=== PATIENT | male | born 1970 | race American Indian/Alaskan Native ===

== ENCOUNTER 2016-08-11 09:02 | Emergency (ER) | payer SELFPAY ==
[2016-08-11 09:20] VITALS: BP 141/97
[2016-08-11 09:59] LABS: Eosinophils % (Auto) 0.5 % (0.0-4.3); Hematocrit 41.8 % (35.5-45.6); Hemoglobin 14.1 gm/dl (11.8-15.2); Mean Corpuscular HGB Conc 34 % (32-34); Mean Corpuscular Hemoglobin 31 pg (28-32); Mean Corpuscular Volume 92 fl (84-94); Platelet Count 303 K/mm3 (140-440); Red Blood Count 4.52 M/mm3 (3.65-5.03); Red Cell Distribution Width 14.5 % (13.2-15.2); White Blood Count 5.1 K/mm3 (4.5-11.0)
[2016-08-11 10:02] LABS: Alanine Aminotransferase 19 units/L (7-56); Albumin 4.3 g/dL (3.9-5); Albumin/Globulin Ratio 1.2 %; Alkaline Phosphatase 83 units/L (35-129); Anion Gap 26 mmol/L; BUN/Creatinine Ratio 8.57; Blood Urea Nitrogen 6 mg/dL (9-20); Calcium 9.2 mg/dL (8.4-10.2); Carbon Dioxide 20 mmol/L (22-30); Chloride 89.1 mmol/L (98-107); Glucose 316 mg/dL (75-100); Lipase 34 units/L (13-60); Potassium 4.4 mmol/L (3.6-5.0); Sodium 131 mmol/L (137-145); Total Protein 7.9 g/dL (6.3-8.2)
[2016-08-11 10:33] LABS: Bilirubin,Urine NEG (Negative); Blood,Urine NEG (Negative); Ketones,Urine 20 mg/dL (Negative); Leukocyte Esterase,Urine NEG (Negative); Mucus,Urine FEW /HPF; Nitrite,Urine NEG (Negative); Protein,Urine <15 mg/dL mg/dL (Negative); Urobilinogen,Urine < 2.0 mg/dL (<2.0)
== END 2016-08-11 11:25 | disposition left against medical advice (07) ==
LOC: ED 09:02
DX: E11.9 Type 2 diabetes mellitus without complications (principal); Z53.21 Procedure and treatment not carried out due to patient leaving prior to being seen by health care provider
CPT/HCPCS: 36415; 80053; 81001; 82962; 83690; 85025

== ENCOUNTER 2016-11-11 20:48 | Emergency (ER) | payer SELFPAY ==
[2016-11-11 21:32] VITALS: BP 124/80
== END 2016-11-11 21:30 | disposition left against medical advice (07) ==
LOC: ED 20:48
DX: R10.9 Unspecified abdominal pain (principal); Z53.21 Procedure and treatment not carried out due to patient leaving prior to being seen by health care provider

== ENCOUNTER 2016-11-12 04:20 | Emergency (ER) | payer SELFPAY ==
[2016-11-12 04:47] VITALS: BP 121/76
== END 2016-11-12 05:00 | disposition left against medical advice (07) ==
LOC: ED 04:20
DX: Z53.21 Procedure and treatment not carried out due to patient leaving prior to being seen by health care provider (principal)
CPT/HCPCS: 82962

== ENCOUNTER 2019-12-14 06:03 | Emergency (ER) | payer OTHER ==
[2019-12-14 06:58] LABS: Alanine Aminotransferase 114 units/L (7-56); Albumin 4.4 g/dL (3.9-5); Blood Urea Nitrogen 5 mg/dL (9-20); Calcium 9.6 mg/dL (8.4-10.2); Hemolysis Index 19
[2019-12-14 06:59] LABS: BUN/Creatinine Ratio 7
[2019-12-14 07:01] LABS: Basophils % (Auto) 0.4 % (0.0-1.8); Eosinophils % (Auto) 0.2 % (0.0-4.3); Hematocrit 44.3 % (35.5-45.6); Hemoglobin 15.5 gm/dl (11.8-15.2); Lymphocytes % (Auto) 43.6 % (13.4-35.0); Mean Corpuscular HGB Conc 35 % (32-34); Mean Corpuscular Volume 103 fl (84-94); Monocytes # (Auto) 0.6 K/mm3 (0.0-0.8); Monocytes % (Auto) 13.7 % (0.0-7.3); Platelet Count 193 K/mm3 (140-440)
[2019-12-14] MEDS ORDERED: ONDANSETRON 4 MG/2 ML INJ IV ONE (07:56)
[2019-12-14] MEDS ORDERED: SODIUM CHLORIDE 0.9% 1000 ML 1,000 ML IV ONE (07:56)
[2019-12-14] MEDS ORDERED: MORPHINE 4 MG/1 ML INJ IV ONE (07:56)
[2019-12-14] MEDS ORDERED: FAMOTIDINE 20 MG/2 ML INJ IV ONE (07:56)
[2019-12-14] MEDS ORDERED: KETOROLAC 30 MG/1 ML INJ IV ONE (07:56)
[2019-12-14] MEDS ORDERED: diphenhydrAMINE 50 MG/ML VIAL IV ONE (08:38)
[2019-12-14] MEDS ORDERED: diphenhydrAMINE 50 MG/ML VIAL IV PRN (08:42)
[2019-12-14 08:47] VITALS: BP 178/120
--- NOTE | 2019-12-14 09:58 | Cat Scan Report ---
CT abdomen pelvis wo con INDICATION: Epigastric pain. COMPARISON: None TECHNIQUE: Abdominal and pelvic CT exam performed. All CT scans at this location are performed using CT dose reduction for ALARA by means of automated exposure control. FINDINGS: CT ABDOMEN and PELVIS: Lung Bases: No significant abnormality. Liver: Decreased attenuation consistent with hepatic steatosis which is more pronounced in the left h epatic lobe. Biliary: Gallbladder is surgically absent. Spleen: No significant abnormality. Pancreas: Parenchymal calcifications are present. Adrenals: No significant abnormality. Kidneys: No significant abnormality. Lymphatics: No lymphadenopathy. Vasculature: No significant abnormality. Bowel/Peritoneum: Diverticulosis without colonic wall thickening or pericolonic stranding. Normal isabel endix. Pelvis: No significant abnormality. Osseous Structures: No aggressive osseous lesion. Postoperative changes to the right iliac and ischiu m. Additional Findings: None IMPRESSION: 1. No acute abnormality. 2. There are scattered pancreatic parenchymal calcifications consistent with sequela of chronic pancr eatitis. Moderate hepatic steatosis is also present. Both of these entities can be sequela of alcohol . Signer Name: Sandeep Moore MD Signed: 12/14/2019 9:54 AM Workstation Name: [id number]
[2019-12-14] MEDS ORDERED: HYDROcodone/ACETAMINOPHEN 5-325 MG TAB PO ONE (10:17)
--- NOTE | 2019-12-14 10:19 | Emergency Department Report ---
ED Abdominal Pain HPI - General Chief Complaint: Abdominal Pain Stated Complaint: ABDOMINAL PAIN Time Seen by Provider: 12/14/19 07:55 Source: patient Mode of arrival: Ambulatory Limitations: No Limitations - History of Present Illness Initial Comments: Patient is a 49-year-old F Israeli male with a past medical history of alcohol abuse and pancreatitis who is presenting with nausea vomiting epigastric pain for the past 3 to 4 days. Patient states has been unable to keep anything down. Is burning epigastric discomfort with some radiation to the mid chest. Patient denies cough cold congestion fevers or chills or diarrhea. Patient states he is trying to drink less but has not stopped drinking because he does not want to go to alcohol withdrawal. Severity scale (0 -10): 1 - Related Data Previous Rx's Medication Instructions Recorded Last Taken Type chlordiazePOXIDE [Librium] 25 mg PO DAILY #20 capsule 04/18/13 Unknown Rx Lipase/Protease/Amylase [Pancreaze 1 cap PO QDAY #30 capsule 09/04/[address] 4,200 Unit] Ondansetron [Zofran Odt] 4 mg PO Q6HR #20 tab.rapdis 09/04/13 Unknown Rx Oxycodone HCl/Acetaminophen 1 each PO Q6HR PRN #20 tablet 09/04/13 Unknown Rx [Percocet 10/325 mg] lisinopriL [Zestril TAB] 10 mg PO QDAY #30 tablet 09/04/13 Unknown Rx metFORMIN [Glucophage] 500 mg PO BID #60 tablet 09/04/13 Unknown Rx oxyCODONE /ACETAMINOPHEN [Percocet 1 tab PO Q6HR PRN #10 tablet 11/14/13 Unknown Rx 5/325] HYDROcodone/APAP 5-325 [[place] 1 each PO Q6HR PRN #10 tablet 12/14/19 Unknown Rx 5/325] Ondansetron [Zofran Odt] 4 mg PO Q8HR #10 tab.rapdis 12/14/19 Unknown Rx Sucralfate [Carafate] 1 gm PO ACHS #30 tablet 12/14/19 Unknown Rx Allergies Allergy/AdvReac Type Severity Reaction Status Date / Time No Known Allergies Allergy Verified 08/11/16 09:13 ED Review of Systems ROS: Stated complaint: ABDOMINAL PAIN Other details as noted in HPI Comment: All other systems reviewed and negative ED Past Medical Hx - Past Medical History Previous Medical History?: Yes Hx Hypertension: Yes Hx Diabetes: Yes Additional medical history: pancreatitis. High Cholesterol - Surgical History Past Surgical History?: Yes Hx Cholecystectomy: Yes - Social History Smoking Status: Never Smoker Substance Use Type: None - Medications Home Medications: Home Medications Medication Instructions Recorded Confirmed Last Taken Type chlordiazePOXIDE [Librium] 25 mg PO DAILY #20 capsule 14 09/03/13 Unknown Rx Lipase/Protease/Amylase [Pancreaze 1 cap PO QDAY #30 capsule 09/04/13 Unknown Rx 4,200 Unit] Ondansetron [Zofran Odt] 4 mg PO Q6HR #20 tab.rapdis 09/04/13 Unknown Rx Oxycodone HCl/Acetaminophen 1 each PO Q6HR PRN #20 tablet 09/04/13 Unknown Rx [Percocet 10/325 mg] lisinopriL [Zestril TAB] 10 mg PO QDAY #30 tablet 09/04/13 Unknown Rx metFORMIN [Glucophage] 500 mg PO BID #60 tablet 09/04/13 Unknown Rx oxyCODONE /ACETAMINOPHEN [Percocet 1 tab PO Q6HR PRN #10 tablet 11/14/13 Unknown Rx 5/325] HYDROcodone/APAP 5-325 [[place] 1 each PO Q6HR PRN #10 tablet 12/14/19 Unknown Rx 5/325] Ondansetron [Zofran Odt] 4 mg PO Q8HR #10 tab.rapdis 12/14/19 Unknown Rx Sucralfate [Carafate] 1 gm PO ACHS #30 tablet 12/14/19 Unknown Rx ED Physical Exam - General Limitations: No Limitations General appearance: alert, in no apparent distress - Head Head exam: Present: atraumatic, normocephalic - Eye Eye exam: Present: normal appearance - ENT ENT exam: Present: normal orophraynx, mucous membranes moist - Neck Neck exam: Present: normal inspection - Respiratory Respiratory exam: Present: normal lung sounds bilaterally. Absent: respiratory distress, wheezes, rales, rhonchi - Cardiovascular Cardiovascular Exam: Present: regular rate, normal rhythm. Absent: systolic murmur, diastolic murmur, rubs, gallop - GI/Abdominal GI/Abdominal exam: Present: soft, tenderness (epigastric), normal bowel sounds. Absent: distended, guarding, rebound - Rectal Rectal exam: Present: deferred - Extremities Exam Extremities exam: Present: normal inspection - Back Exam Back exam: Present: normal inspection - Neurological Exam Neurological exam: Present: alert, oriented X3 - Psychiatric Psychiatric exam: Present: normal affect, normal mood - Skin Skin exam: Present: warm, dry, intact, normal color. Absent: rash ED Course Vital Signs 12/14/19 12/14/19 12/14/19 06:10 07:59 08:00 Temperature 98.8 F Pulse Rate 86 99 H Respiratory 18 12 Rate Blood Pressure 170/107 178/120 Blood Pressure [Right] O2 Sat by Pulse 97 100 99 Oximetry 12/14/19 12/14/19 12/14/19 08:15 08:31 08:38 Temperature Pulse Rate 90 87 Respiratory 15 20 18 Rate Blood Pressure 178/120 178/120 Blood Pressure [Right] O2 Sat by Pulse 97 98 Oximetry 12/14/19 08:44 Temperature 98.2 F Pulse Rate 86 Respiratory 18 Rate Blood Pressure Blood Pressure 172/115 [Right] O2 Sat by Pulse 100 Oximetry ED Medical Decision Making - Lab Data Result diagrams: 12/14/19 06:16 12/14/19 06:16 Lab Results 12/14/19 12/14/19 Range/Units 06:16 06:16 WBC 4.5 (4.5-11.0) K/mm3 RBC 4.30 (3.65-5.03) M/mm3 Hgb 15.5 H (11.8-15.2) gm/dl Hct 44.3 (35.5-45.6) % MCV 103 H (84-94) fl MCH 36 H (28-32) pg MCHC 35 H (32-34) % RDW 13.0 L (13.2-15.2) % Plt Count 193 (140-440) K/mm3 Lymph % (Auto) 43.6 H (13.4-35.0) % Catron % (Auto) 13.7 H (0.0-7.3) % Eos % (Auto) 0.2 (0.0-4.3) % Baso % (Auto) 0.4 (0.0-1.8) % Lymph # (Auto) 2.0 (1.2-5.4) K/mm3 Catron # (Auto) 0.6 (0.0-0.8) K/mm3 Eos # (Auto) 0.0 (0.0-0.4) K/mm3 Baso # (Auto) 0.0 (0.0-0.1) K/mm3 Seg Neutrophils % 42.1 (40.0-70.0) % Seg Neutrophils # 1.9 (1.8-7.7) K/mm3 Sodium 133 L (137-145) mmol/L Potassium 4.7 (3.6-5.0) mmol/L Chloride 90.8 L (98-107) mmol/L Carbon Dioxide 23 (22-30) mmol/L Anion Gap 24 mmol/L BUN 5 L (9-20) mg/dL Creatinine 0.7 L (0.8-1.3) mg/dL Estimated GFR > 60 ml/min BUN/Creatinine Ratio 7 % Glucose 169 H (75-100) mg/dL Calcium 9.6 (8.4-10.2) mg/dL Total Bilirubin 0.60 (0.1-1.2) mg/dL AST 72 H (5-40) units/L ALT 114 H (7-56) units/L Alkaline Phosphatase 146 H (35-129) units/L Total Protein 7.5 (6.3-8.2) g/dL Albumin 4.4 (3.9-5) g/dL Albumin/Globulin Ratio 1.4 % Lipase 40 (13-60) units/L - Radiology Data Reporting MD: Sandeep Moore Dictation Time: December 14, 2019 08:54 Clinical Cytogenetics Director: Not available Manhole Builder Date: CT abdomen pelvis wo con INDICATION: Epigastric pain. COMPARISON: None TECHNIQUE: Abdominal and pelvic CT exam performed. All CT scans at this location are performed using CT dose reduction for ALARA by means of automated exposure control. FINDINGS: CT ABDOMEN and PELVIS: Lung Bases: No significant abnormality. Liver: Decreased attenuation consistent with hepatic steatosis which is more pronounced in the left hepatic lobe. Biliary: Gallbladder is surgically absent. Spleen: No significant abnormality. Pancreas: Parenchymal calcifications are present. Adrenals: No significant abnormality. Kidneys: No significant abnormality. Lymphatics: No lymphadenopathy. Vasculature: No significant abnormality. Bowel/Peritoneum: Diverticulosis without colonic wall thickening or pericolonic stranding. Normal appendix. Pelvis: No significant abnormality. Osseous Stru ctures: No aggressive osseous lesion. Postoperative changes to the right iliac and ischium. Additional Findings: None IMPRESSION: 1. No acute abnormality. 2. There are scattered pancreatic pare nchymal calcifications consistent with sequela of chronic pancreatitis. Moderate hepatic steatosis is also present. Both of these entities can be sequela of alcohol. Signer Name: Sandeep Moore MD Signed: 12/14/2019 8:54 AM Workstation Name: [id number] - Medical Decision Making Patient's pain is decreasing. Nausea is improved. CT does not show acute pancreatitis. Laboratory studies are consistent with some mild dehydration. Patient was hydrated but will be stable for discharge. Patient started on Carafate for probable alcoholic gastritis. Critical care attestation.: If time is entered above; I have spent that time in minutes in the direct care of this critically ill patient, excluding procedure time. ED Disposition Clinical Impression: Mild dehydration Alcoholic gastritis Qualifiers: Chronicity: acute Gastritis bleeding: without bleeding Qualified Code(s): K29.20 - Alcoholic gastritis without bleeding Chronic pancreatitis Qualifiers: Pancreatitis type: alcohol induced Qualified Code(s): K86.0 - Alcohol-induced chronic pancreatitis Disposition: DC-01 TO HOME OR SELFCARE Is pt being admited?: No Does the pt Need Aspirin: No Condition: Stable Instructions: Gastritis (ED) Referrals: PRIMARY CAREMD [Primary Care Provider] - 3-5 Days Time of Disposition: 10:22
== END 2019-12-14 12:43 | disposition home or self-care (01) ==
LOC: ED 06:03
DX: K29.20 Alcoholic gastritis without bleeding (principal); E86.0 Dehydration; K86.0 Alcohol-induced chronic pancreatitis; I10 Essential (primary) hypertension; E11.9 Type 2 diabetes mellitus without complications; E78.00 Pure hypercholesterolemia, unspecified; Z90.49 Acquired absence of other specified parts of digestive tract; Z79.899 Other long term (current) drug therapy
CPT/HCPCS: 36415; 74176; 80053; 83690; 85025; 96361; 96374; 96375; 99284; J1200; J1885; J2270; J2405; J7030

== ENCOUNTER 2021-07-10 11:18 | Inpatient (IN) | payer OTHER ==
[2021-07-10 12:40] LABS: Basophils % (Auto) 0.3 % (0.0-1.8); Hematocrit 44.5 % (35.5-45.6); Hemoglobin 15.2 gm/dl (11.8-15.2); Lymphocytes # (Auto) 0.8 K/mm3 (1.2-5.4); Lymphocytes % (Auto) 7.4 % (13.4-35.0); Mean Corpuscular HGB Conc 34 % (32-34); Mean Corpuscular Volume 99 fl (84-94); Monocytes # (Auto) 1.1 K/mm3 (0.0-0.8); Monocytes % (Auto) 10.1 % (0.0-7.3); Platelet Count 289 K/mm3 (140-440); Red Blood Count 4.52 M/mm3 (3.65-5.03)
[2021-07-10 13:00] LABS: Alanine Aminotransferase 17 units/L (7-56); Albumin 5.3 g/dL (3.9-5); BUN/Creatinine Ratio 9; Blood Urea Nitrogen 8 mg/dL (9-20); Calcium 10.5 mg/dL (8.4-10.2); Hemolysis Index 6
[2021-07-10 15:08] LABS: Bilirubin,Urine NEG (Negative); Blood,Urine NEG (Negative); Color,Urine Straw (Yellow); RBC,Urine < 1.0 /HPF (0.0-6.0); Urobilinogen,Urine < 2.0 mg/dL (<2.0)
[2021-07-10 15:13] LABS: WBC,Urine < 1.0 /HPF (0.0-6.0)
[2021-07-10] MEDS ORDERED: MORPHINE 4 MG/1 ML INJ IV ONE (18:21)
[2021-07-10] MEDS ORDERED: SODIUM CHLORIDE 0.9% 1000 ML 1,000 ML IV ONE ×2 (18:21)
[2021-07-10] MEDS ORDERED: ONDANSETRON 4 MG/2 ML INJ IV ONE (18:21)
[2021-07-10] MEDS ORDERED: INSULIN REGULAR, HUMAN 100 UNITS/1 ML IV ONE (18:22)
[2021-07-10] MEDS ORDERED: FAMOTIDINE 20 MG/2 ML INJ IV ONE (18:24)
--- NOTE | 2021-07-10 18:27 | Emergency Department Report ---
Blank Doc - Documentation Documentation: Chart brought to my attention by charge nurse Jayda regarding critical values of hyperglycemia. Patient does have an anion gap with elevated ketones. As per medical record history of pancreatitis and alcohol abuse. Differential includes acute alcohol intoxication, DKA, or dehydration as cause of anion gap acidosis with ketosis. Patient does have mild elevation in lipase. Additional labs ordered include alcohol level and venous pH IV fluids, insulin, Pepcid, morphine, Zofran, and CT abdomen pelvis have been ordered Triage nurse will initiate IV access and meds while awaiting bed availability in the department
[2021-07-10] MEDS ORDERED: diphenhydrAMINE 50 MG/ML VIAL IV ONE (19:17)
[2021-07-10] MEDS ORDERED: diphenhydrAMINE 50 MG/ML VIAL ONE (19:18)
[2021-07-10] MEDS ORDERED: PANTOPRAZOLE 40 MG INJ IV ONE (21:30)
[2021-07-10] MEDS ORDERED: SODIUM CHLORIDE 0.9% 1000 ML 2,000 ML IV ONE (21:30)
--- NOTE | 2021-07-10 21:30 | Emergency Department Report ---
ED General Adult HPI - General Chief complaint: Abdominal Pain Stated complaint: PANCREAS PUI?: No Time Seen by Provider: 07/10/21 21:15 Source: patient, RN notes reviewed, old records reviewed Mode of arrival: Ambulatory Limitations: No Limitations - History of Present Illness Initial comments: The patient was evaluated in the emergency department for symptoms described in the history of present illness. He/she was evaluated in the context of the global COVID-19 pandemic, which necessitated consideration that the patient m ight be at risk for infection with the virus that causes COVID-19. Institutional protocols and algorithms that pertain to the evaluation of patients at risk for COVID-19 are in a state of rapid change based on information released by regulatory bodies including the CDC and federal and state organizations. These policies and algorithms were followed during the patient's care in the emergency department. Please note that these policies, procedures and recommendations changed on a rapid basis. The patient is a 51-year-old gentleman with a history of alcohol abuse, diabetes, hypertension, and chronic pancreatitis, who presents to the ER today with a complaint of diffuse abdominal pain, cramping, nausea and vomiting. He consumed alcohol yesterday. He is not homicidal or suicidal. He endorses a "funny" feeling in his genitals, and possible dysuria. He denies homicidality, suicidality, hallucinations, access to guns or firearms, and also denies headache, neck pain, chest pain and shortness of breath. Last alcohol consumption was yesterday. He reports his symptoms typically improved with Dilaudid and Benadryl. -: days(s) Location: abdomen Severity scale (0 -10): 8 Quality: aching Consistency: constant Improves with: medication Worsens with: eating - Related Data Previous Rx's Medication Instructions Recorded Last Taken Type chlordiazePOXIDE [Librium] 25 mg PO DAILY #20 capsule 04/18/13 Unknown Rx Lipase/Protease/Amylase [Pancreaze 1 cap PO QDAY #30 capsule 09/04/13 Unknown Rx 4,200 Unit] Ondansetron [Zofran Odt] 4 mg PO Q6HR #20 tab.rapdis 09/04/13 Unknown Rx Oxycodone HCl/Acetaminophen 1 each PO Q6HR PRN #20 tablet 09/04/13 Unknown Rx [Percocet 10/325 mg] lisinopriL [Zestril TAB] 10 mg PO QDAY #30 tablet 09/04/13 Unknown Rx metFORMIN [Glucophage] 500 mg PO BID #60 tablet 09/04/13 Unknown Rx oxyCODONE /ACETAMINOPHEN [Percocet 1 tab PO Q6HR PRN #10 tablet 11/14/13 Unknown Rx 5/325] HYDROcodone/APAP 5-325 [[place] 1 each PO Q6HR PRN #10 tablet 12/14/19 Unknown Rx 5/325] Ondansetron [Zofran Odt] 4 mg PO Q8HR #10 tab.rapdis 12/14/19 Unknown Rx Sucralfate [Carafate] 1 gm PO ACHS #30 tablet 12/14/19 Unknown Rx Allergies Allergy/AdvReac Type Severity Reaction Status Date / Time No Known Allergies Allergy Verified 08/11/16 09:13 ED Review of Systems ROS: Stated complaint: PANCREAS Other details as noted in HPI Constitutional: denies: fever Eyes: denies: eye discharge ENT: denies: epistaxis Respiratory: denies: cough Cardiovascular: denies: chest pain Gastrointestinal: abdominal pain, nausea, vomiting Genitourinary: as per HPI Musculoskeletal: back pain Neurological: denies: weakness Psychiatric: denies: visual hallucinations, suicidal thoughts ED Past Medical Hx - Past Medical History Previous Medical History?: Yes Hx Hypertension: Yes Hx Diabetes: Yes Additional medical history: pancreatitis. High Cholesterol - Surgical History Past Surgical History?: Yes Hx Cholecystectomy: Yes - Social History Smoking Status: Never Smoker Substance Use Type: None - Medications Home Medications: Home Medications Medication Instructions Recorded Confirmed Last Taken Type chlordiazePOXIDE [Librium] 25 mg PO DAILY #20 capsule 04/18/13 09/03/13 Unknown Rx Lipase/Protease/Amylase [Pancreaze 1 cap PO QDAY #30 capsule 09/04/[address] 4,200 Unit] Ondansetron [Zofran Odt] 4 mg PO Q6HR #20 tab.rapdis 09/04/13 Unknown Rx Oxycodone HCl/Acetaminophen 1 each PO Q6HR PRN #20 tablet 09/04/13 Unknown Rx [Percocet 10/325 mg] lisinopriL [Zestril TAB] 10 mg PO QDAY #30 tablet 09/04/13 Unknown Rx metFORMIN [Glucophage] 500 mg PO BID #60 tablet 09/04/13 Unknown Rx oxyCODONE /ACETAMINOPHEN [Percocet 1 tab PO Q6HR PRN #10 tablet 11/14/13 Unknown Rx 5/325] HYDROcodone/APAP 5-325 [[place] 1 each PO Q6HR PRN #10 tablet 12/14/19 Unknown Rx 5/325] Ondansetron [Zofran Odt] 4 mg PO Q8HR #10 tab.rapdis 12/14/19 Unknown Rx Sucralfate [Carafate] 1 gm PO ACHS #30 tablet 12/14/19 Unknown Rx ED Physical Exam - General Limitations: No Limitations General appearance: alert, anxious - Head Head exam: Present: atraumatic, normocephalic - Eye Eye exam: Present: normal appearance, EOMI. Absent: nystagmus - ENT ENT exam: Present: normal exam, normal orophraynx, mucous membranes moist, normal external ear exam - Neck Neck exam: Present: normal inspection, full ROM. Absent: tenderness, meningismus - Respiratory Respiratory exam: Present: normal lung sounds bilaterally. Absent: respiratory distress, wheezes, rales, rhonchi, stridor, decreased breath sounds - Cardiovascular Cardiovascular Exam: Present: normal rhythm, tachycardia, normal heart sounds. Absent: bradycardia, irregular rhythm, systolic murmur, diastolic murmur, rubs, gallop - GI/Abdominal GI/Abdominal exam: Present: soft. Absent: distended, tenderness, guarding, rebound, rigid, pulsatile mass - Rectal Rectal exam: Present: deferred - exam: Present: normal inspection, other (Chaperoned by nurse Cassie Lundy). Absent: testicular tenderness External exam: Present: normal external exam, other (There is normal testicular lie. There is normal cremasteric reflex. There is no testicular tenderness. There is no testicular swelling) - Extremities Exam Extremities exam: Present: normal inspection, full ROM, other (2+ pulses noted in the bilateral upper and lower extremities. There is no palpable cord. negative Homans sign. Muscular compartments are soft. The pelvis is stable.). Absent: pedal edema, calf tenderness - Back Exam Back exam: Present: normal inspection, paraspinal tenderness. Absent: tenderness, CVA tenderness (R), CVA tenderness (L), vertebral tenderness - Neurological Exam Neurological exam: Present: alert, oriented X3, other (No facial droop. Tongue midline. Extraocular movements intact bilaterally. Facial sensation intact to light touch in V1, V2, V3 distribution bilaterally. 5 and a 5 strength in 4 extremities. Sensation intact to light touch in 4 extremities.). Absent: motor sensory deficit - Psychiatric Psychiatric exam: Present: anxious. Absent: homicidal ideation, suicidal ideation - Skin Skin exam: Present: warm, dry, intact, normal color. Absent: rash ED Course Vital Signs 07/10/21 07/10/21 07/10/21 11:54 18:52 23:32 Temperature 97.8 F 97.9 F Pulse Rate 104 H 116 H Respiratory 18 18 Rate Blood Pressure 128/93 166/99 O2 Sat by Pulse 96 98 Oximetry O2 Sat by Pulse 99 Oximetry [ Digit-Finger] - Reevaluation(s) Reevaluation #1: 07/10/21 23:30 Differential diagnosis, including but not limited to: Chronic pancreatitis, acute pancreatitis, alcohol gastritis, alcohol dependence, alcohol withdrawal, diabetic gastroparesis, dehydration, hypoglycemia Assessment and plan: 41-year-old gentleman, presenting with acute on chronic chronic pancreatitis, complicated by hyperglycemia, mild dehydration, metabolic acidosis with normal venous pH. Suspect combination of alcoholic starvation ketosis, dehydration, gastroparesis, and probable acute exacerbation of chronic pancreatitis. The patient does not meet criteria for 1013 hold or involuntary confinement. Do not appreciate tongue fasciculations at this time. Initial laboratory studies are reviewed and appreciated. Start patient on alcohol withdrawal protocol, hydromorphone x1 for acute breakthrough pain, continue IV fluids, repeat basic metabolic panel is pending at this time, to assess improvements and metabolic derangement. Current heart rate 116 bpm. 07/11/21 00:32 The patient is still tachycardic. He is still hyperglycemic, and repeat basic metabolic panel shows worsening anion gap acidosis, and persistent hyper glycemia. Given initial normal venous pH, I suspect that this is alcoholic starvation ketosis, compounded by gastroparesis, and concomitant dehydration. Fluids and additional insulin are ordered. Patient is agreeable to admission and hospitalization. Medical decision makin-year-old gentleman with persistent hyperglycemia, metabolic acidosis, dehydration, requires admission to the medical service for correction of electrolyte derangements and metabolic derangements. Hospital physician, Dr. Arceo to admit to [facility] - Pulse Oximetry Interpretation Digit-Finger Initial Pulse Oximetry Readin O2 Sat by Pulse Oximetry: 99 Actions Taken: none ED Medical Decision Making - Lab Data Result diagrams: 07/10/21 12:10 07/10/21 23:38 Vital Signs 07/10/21 07/10/21 11:54 18:52 Temperature 97.8 F 97.9 F Pulse Rate 104 H 116 H Respiratory 18 18 Rate Blood Pressure 128/93 166/99 O2 Sat by Pulse 96 98 Oximetry Lab Results 07/10/21 07/10/21 07/10/21 Range/Units 12:10 12:10 18:31 WBC 11.1 H (4.5-11.0) K/mm3 RBC 4.52 (3.65-5.03) M/mm3 Hgb 15.2 (11.8-15.2) gm/dl Hct 44.5 (35.5-45.6) % MCV 99 H (84-94) fl MCH 34 H (28-32) pg MCHC 34 (32-34) % RDW 13.0 L (13.2-15.2) % Plt Count 289 (140-440) K/mm3 Lymph % (Auto) 7.4 L (13.4-35.0) % Irwin % (Auto) 10.1 H (0.0-7.3) % Eos % (Auto) 0.0 (0.0-4.3) % Baso % (Auto) 0.3 (0.0-1.8) % Lymph # (Auto) 0.8 L (1.2-5.4) K/mm3 Irwin # (Auto) 1.1 H (0.0-0.8) K/mm3 Eos # (Auto) 0.0 (0.0-0.4) K/mm3 Baso # (Auto) 0.0 (0.0-0.1) K/mm3 Seg Neutrophils % 82.2 H (40.0-70.0) % Seg Neutrophils # 9.1 H (1.8-7.7) K/mm3 VBG pH 7.385 (7.320-7.420) Sodium 130 L (137-145) mmol/L Potassium 4.7 (3.6-5.0) mmol/L Chloride 88.7 L (98-107) mmol/L Carbon Dioxide 19 L (22-30) mmol/L Anion Gap 27 mmol/L BUN 8 L (9-20) mg/dL Creatinine 0.9 (0.8-1.3) mg/dL Estimated GFR > 60 ml/min BUN/Creatinine Ratio 9 % Glucose 416 H (75-100) mg/dL Calcium 10.5 H (8.4-10.2) mg/dL Total Bilirubin 0.60 (0.1-1.2) mg/dL AST 19 (5-40) units/L ALT 17 (7-56) units/L Alkaline Phosphatase 138 H (35-129) units/L Total Protein 8.3 H (6.3-8.2) g/dL Albumin 5.3 H (3.9-5) g/dL Albumin/Globulin Ratio 1.8 % Lipase 95 H (13-60) units/L Urine Color (Yellow) Urine Turbidity (Clear) Urine pH (5.0-7.0) Ur Specific Wright (1.003-1.030) Urine Protein (Negative) mg/dL Urine Glucose (UA) (Negative) mg/dL Urine Ketones (Negative) mg/dL Urine Blood (Negative) Urine Nitrite (Negative) Urine Bilirubin (Negative) Urine Urobilinogen (<2.0) mg/dL Ur Leukocyte Esterase (Negative) Urine WBC (Auto) (0.0-6.0) /HPF Urine RBC (Auto) (0.0-6.0) /HPF Plasma/Serum Alcohol (0-0.07) % 07/10/21 07/10/21 Range/Units 18:31 Unknown WBC (4.5-11.0) K/mm3 RBC (3.65-5.03) M/mm3 Hgb (11.8-15.2) gm/dl Hct (35.5-45.6) % MCV (84-94) fl MCH (28-32) pg MCHC (32-34) % RDW (13.2-15.2) % Plt Count (140-440) K/mm3 Lymph % (Auto) (13.4-35.0) % Irwin % (Auto) (0.0-7.3) % Eos % (Auto) (0.0-4.3) % Baso % (Auto) (0.0-1.8) % Lymph # (Auto) (1.2-5.4) K/mm3 Irwin # (Auto) (0.0-0.8) K/mm3 Eos # (Auto) (0.0-0.4) K/mm3 Baso # (Auto) (0.0-0.1) K/mm3 Seg Neutrophils % (40.0-70.0) % Seg Neutrophils # (1.8-7.7) K/mm3 VBG pH (7.320-7.420) Sodium (137-145) mmol/L Potassium (3.6-5.0) mmol/L Chloride (98-107) mmol/L Carbon Dioxide (22-30) mmol/L Anion Gap mmol/L BUN (9-20) mg/dL Creatinine (0.8-1.3) mg/dL Estimated GFR ml/min BUN/Creatinine Ratio % Glucose (75-100) mg/dL Calcium (8.4-10.2) mg/dL Total Bilirubin (0.1-1.2) mg/dL AST (5-40) units/L ALT (7-56) units/L Alkaline Phosphatase (35-129) units/L Total Protein (6.3-8.2) g/dL Albumin (3.9-5) g/dL Albumin/Globulin Ratio % Lipase (13-60) units/L Urine Color Straw (Yellow) Urine Turbidity Clear (Clear) Urine pH 5.0 (5.0-7.0) Ur Specific Wright 1.025 (1.003-1.030) Urine Protein 30 mg/dl (Negative) mg/dL Urine Glucose (UA) >=500 (Negative) mg/dL Urine Ketones 80 (Negative) mg/dL Urine Blood Neg (Negative) Urine Nitrite Neg (Negative) Urine Bilirubin Neg (Negative) Urine Urobilinogen < 2.0 (<2.0) mg/dL Ur Leukocyte Esterase Neg (Negative) Urine WBC (Auto) < 1.0 (0.0-6.0) /HPF Urine RBC (Auto) < 1.0 (0.0-6.0) /HPF Plasma/Serum Alcohol < 0.01 (0-0.07) % - EKG Data -: EKG Interpreted by [place] EKG shows normal: sinus rhythm Rate: tachycardia - EKG Data 07/10/21 23:26 The EKG is interpreted at 21: 50 Sinus rhythm, tachycardia, rate 110 bpm. There is a borderline leftward axis de viation, there is a left anterior fascicular block. The QTC is 4 6 9 ms. The QT is 3 4 7 ms. This is an abnormal EKG. This is not a STEMI - Radiology Data Radiology results: pending, report reviewed, image reviewed CT ABDOMEN AND PELVIS WITH INTRAVENOUS CONTRAST INDICATION / CLINICAL INFORMATION: Abdominal pain with nausea and vomiting; hx or pancreatitis, hyperglycemia. TECHNIQUE: 100 cc Omnipaque [address] scans at this location are performed using CT dose reduction for ALARA by means of automated exposure control. COMPARISON: 12/14/19. FINDINGS: ABDOMEN: The gallbladder is surgically absent. There are scattered calcifications throughout the pancreas without definite acute inflammation. No pancreatic mass. The liver, spleen, bile ducts, adrenal glands, kidneys and bowel demonstrate no significant abnormality. No adenopathy is present. No acute vascular abnormality is seen. The lung bases are clear. PELVIS: The distal ureters and urinary bladder are normal. The prostate gland and seminal vesicles are unremarkable. There is no evidence of appendicitis. There are few scattered left colonic diverticula without acute inflammation. No abnormal mass or fluid collection is seen. I do not identify a hernia. There is internal fixation of the right acetabulum. No acute osseous abnormality is present. IMPRESSION: 1. No acute abnormality is identified. 2. Changes of chronic calcific pancreatitis. Signer Name: Kin Christine MD Signed: 07/10/2021 9:01 PM Workstation Name: [id number] Critical Care Time: Yes Critical care time in (mins) excluding proc time.: 35 Critical care attestation.: If time is entered above; I have spent that time in minutes in the direct care of this critically ill patient, excluding procedure time. ED Disposition Clinical Impression: Acute abdominal pain, Hyperglycemia, Nausea & vomiting, Chronic pancreatitis, Alcohol dependence, Metabolic acidosis Disposition: ADMITTED INPATIENT Is pt being admited?: Yes Does the pt Need Aspirin: No Condition: Good
[2021-07-10] MEDS ORDERED: diazePAM 10 MG/2 ML SYRINGE IV ONE (21:50)
--- NOTE | 2021-07-10 22:05 | Cat Scan Report ---
CT ABDOMEN AND PELVIS WITH INTRAVENOUS CONTRAST INDICATION / CLINICAL INFORMATION: Abdominal pain with nausea and vomiting; hx or pancreatitis, hyper glycemia. TECHNIQUE: 100 cc Omnipaque [address] scans at this location are performed using CT d ose reduction for ALARA by means of automated exposure control. COMPARISON: 12/14/19. FINDINGS: ABDOMEN: The gallbladder is surgically absent. There are scattered calcifications throughout the panc reas without definite acute inflammation. No pancreatic mass. The liver, spleen, bile ducts, adrenal glands, kidneys and bowel demonstrate no significant abnormality. No adenopathy is present. No acute vascular abnormality is seen. The lung bases are clear. PELVIS: The distal ureters and urinary bladder are normal. The prostate gland and seminal vesicles ar e unremarkable. There is no evidence of appendicitis. There are few scattered left colonic diverticul a without acute inflammation. No abnormal mass or fluid collection is seen. I do not identify a herni a. There is internal fixation of the right acetabulum. No acute osseous abnormality is present. IMPRESSION: 1. No acute abnormality is identified. 2. Changes of chronic calcific pancreatitis. Signer Name: Kin Christine MD Signed: 07/10/2021 10:01 PM Workstation Name: [id number]
[2021-07-10] MEDS ORDERED: LORazepam 2 MG/ML VIAL IV PRN (23:28)
[2021-07-10] MEDS ORDERED: HYDROmorphone 0.5 MG/0.5 ML INJ IV ONE (23:29)
[2021-07-11 00:05] LABS: BUN/Creatinine Ratio 11; Blood Urea Nitrogen 9 mg/dL (9-20); Calcium 9.8 mg/dL (8.4-10.2); Hemolysis Index 15
[2021-07-11] MEDS ORDERED: SODIUM CHLORIDE 0.9% 1000 ML 1,000 ML ONE (00:08)
[2021-07-11] MEDS ORDERED: INSULIN REGULAR, HUMAN 100 UNITS/1 ML IV ONE (00:32)
[2021-07-11] MEDS: LORazepam 2 MG/ML VIAL IV PRN ×5 (00:55→20:01)
[2021-07-11] MEDS ORDERED: DEXTROSE 50% IN WATER (25GM) 50 ML SYRINGE IV PRN (02:18)
[2021-07-11] MEDS ORDERED: ALBUTEROL 2.5 MG/3 ML NEBU IH PRN (02:18)
[2021-07-11] MEDS ORDERED: hydrALAZINE 20 MG/1 ML INJ IV PRN (02:22)
[2021-07-11] MEDS ORDERED: THIAMINE 100 MG, FOLIC ACID 1 MG, MULTIPLE VITAMIN INJ, ADULT 10 ML in SODIUM CHLORIDE ... IV ONE (02:22)
--- NOTE | 2021-07-11 02:27 | History and Physical Report ---
History of Present Illness Date of examination: 07/11/21 Date of admission: 07/11/21 Chief complaint: Abdominal pain Nausea vomiting Alcohol abuse History of present illness: 51-year-old male with past medical history of alcohol abuse, diabetes, hypertension, and chronic pancreatitis was brought to the emergency room because of diffuse abdominal pain, cramping, nausea and vomiting. He consumed alcohol yesterday. He is not homicidal or suicidal. He endorses a "funny" feeling in his genitals, and possible dysuria. He denies homicidality, suicidality, hallucinations, access to guns or firearms, and also denies headache, neck pain, chest pain and shortness of breath. Last alcohol consumption was yesterday. He reports his symptoms typically improved with Dilaudid and Benadryl. In the emergency room patient is found to have glucose of 416, bicarb 19, sodium 130, plasma alcohol level 0.01. So going to admit the patient we will put the patient on IV fluid, insulin sliding scale and CIWA protocol Past History Past Medical History: diabetes, hypertension, hyperlipidemia, other (Chronic pancreatitis and alcohol abuse) Past Surgical History: cholecystectomy Social history: alcohol abuse Family history: hypertension Medications and Allergies Allergies Allergy/AdvReac Type Severity Reaction Status Date / Time No Known Allergies Allergy Verified 08/11/16 09:13 Home Medications Medication Instructions Recorded Confirmed Last Taken Type chlordiazePOXIDE [Librium] 25 mg PO DAILY #20 capsule 04/18/13 09/03/13 Unknown Rx Lipase/Protease/Amylase [Pancreaze 1 cap PO QDAY #30 capsule 09/04/13 Unknown Rx 4,200 Unit] Ondansetron [Zofran Odt] 4 mg PO Q6HR #20 tab.rapdis 09/04/13 Unknown Rx Oxycodone HCl/Acetaminophen 1 each PO Q6HR PRN #20 tablet 09/04/13 Unknown Rx [Percocet 10/325 mg] lisinopriL [Zestril TAB] 10 mg PO QDAY #30 tablet 09/04/13 Unknown Rx metFORMIN [Glucophage] 500 mg PO BID #60 tablet 09/04/13 Unknown Rx oxyCODONE /ACETAMINOPHEN [Percocet 1 tab PO Q6HR PRN #10 tablet 11/14/13 Unknown Rx 5/325] HYDROcodone/APAP 5-325 [[place] 1 each PO Q6HR PRN #10 tablet 12/14/19 Unknown Rx 5/325] Ondansetron [Zofran Odt] 4 mg PO Q8HR #10 tab.rapdis 12/14/19 Unknown Rx Sucralfate [Carafate] 1 gm PO ACHS #30 tablet 12/14/19 Unknown Rx Active Meds: Active Medications Lorazepam (Lorazepam 2 Mg/Ml Vial) 2 mg IV Q1HR PRN PRN Reason: CIWA-Ar 8-15 Last Admin: 07/11/21 00:55 Dose: 2 mg Lorazepam (Lorazepam 2 Mg/Ml Vial) 4 mg IV Q1HR PRN PRN Reason: CIWA-Ar 16-25 Lorazepam (Lorazepam 2 Mg/Ml Vial) 4 mg IV Q15MIN PRN PRN Reason: CIWA-Ar >25 Review of Systems All systems: negative Constitutional: other (Back pain) Gastrointestinal: abdominal pain, nausea, vomiting Exam - Constitutional Vitals: Temp Pulse Resp BP Pulse Ox 97.9 F 116 H 18 166/99 99 07/10/21 18:52 07/10/21 18:52 07/10/21 18:52 07/10/21 18:52 07/11/21 00:35 General appearance: Present: no acute distress, well-nourished - EENT Eyes: Present: PERRL ENT: hearing intact, clear oral mucosa - Neck Neck: Present: supple, normal ROM - Respiratory Respiratory effort: normal Respiratory: bilateral: diminished - Cardiovascular Heart Sounds: Present: S1 & S2. Absent: rub, click - Extremities Extremities: pulses symmetrical, No edema Peripheral Pulses: within normal limits - Abdominal General gastrointestinal: Present: soft, non-tender, non-distended, normal bowel sounds Male genitourinary: Present: normal - Integumentary Integumentary: Present: clear, warm, dry - Musculoskeletal Musculoskeletal: gait normal, strength equal bilaterally - Psychiatric Psychiatric: appropriate mood/affect, intact judgment & insight - Neurologic Neurologic: CNII-XII intact, moves all extremities Results - Labs CBC & Chem 7: 07/10/21 12:10 07/10/21 23:38 Labs: Laboratory Last Values WBC 11.1 K/mm3 (4.5-11.0) H 07/10/21 12:10 RBC 4.52 M/mm3 (3.65-5.03) 07/10/21 12:10 Hgb 15.2 gm/dl (11.8-15.2) 07/10/21 12:10 Hct 44.5 % (35.5-45.6) 07/10/21 12:10 MCV 99 fl (84-94) H 07/10/21 12:10 MCH 34 pg (28-32) H 07/10/21 12:10 MCHC 34 % (32-34) 07/10/21 12:10 RDW 13.0 % (13.2-15.2) L 07/10/21 12:10 Plt Count 289 K/mm3 (140-440) 07/10/21 12:10 Lymph % (Auto) 7.4 % (13.4-35.0) L 07/10/21 12:10 [place] % (Auto) 10.1 % (0.0-7.3) H 07/10/21 12:10 Eos % (Auto) 0.0 % (0.0-4.3) 07/10/21 12:10 Baso % (Auto) 0.3 % (0.0-1.8) 07/10/21 12:10 Lymph # (Auto) 0.8 K/mm3 (1.2-5.4) L 07/10/21 12:10 [place] # (Auto) 1.1 K/mm3 (0.0-0.8) H 07/10/21 12:10 Eos # (Auto) 0.0 K/mm3 (0.0-0.4) 07/10/21 12:10 Baso # (Auto) 0.0 K/mm3 (0.0-0.1) 07/10/21 12:10 Seg Neutrophils % 82.2 % (40.0-70.0) H 07/10/21 12:10 Seg Neutrophils # 9.1 K/mm3 (1.8-7.7) H 07/10/21 12:10 VBG pH 7.385 (7.320-7.420) 07/10/21 18:31 Sodium 132 mmol/L (137-145) L 07/10/21 23:38 Potassium 5.0 mmol/L (3.6-5.0) 07/10/21 23:38 Chloride 91.5 mmol/L (98-107) L 07/10/21 23:38 Carbon Dioxide 16 mmol/L (22-30) L 07/10/21 23:38 Anion Gap 30 mmol/L 07/10/21 23:38 BUN 9 mg/dL (9-20) 07/10/21 23:38 Creatinine 0.8 mg/dL (0.8-1.3) 07/10/21 23:38 Estimated GFR > 60 ml/min 07/10/21 23:38 BUN/Creatinine Ratio 11 % 07/10/21 23:38 Glucose 423 mg/dL (75-100) H 07/10/21 23:38 Calcium 9.8 mg/dL (8.4-10.2) 07/10/21 23:38 Total Bilirubin 0.60 mg/dL (0.1-1.2) 07/10/21 12:10 AST 19 units/L (5-40) 07/10/21 12:10 ALT 17 units/L (7-56) 07/10/21 12:10 Alkaline Phosphatase 138 units/L (35-129) H 07/10/21 12:10 Total Protein 8.3 g/dL (6.3-8.2) H 07/10/21 12:10 Albumin 5.3 g/dL (3.9-5) H 07/10/21 12:10 Albumin/Globulin Ratio 1.8 % 07/10/21 12:10 Lipase 95 units/L (13-60) H 07/10/21 12:10 Urine Color Straw (Yellow) 07/10/21 Unknown Urine Turbidity Clear (Clear) 07/10/21 Unknown Urine pH 5.0 (5.0-7.0) 07/10/21 Unknown Ur Specific [place] 1.025 (1.003-1.030) 07/10/21 Unknown Urine Protein 30 mg/dl mg/dL (Negative) 07/10/21 Unknown Urine Glucose (UA) >=500 mg/dL (Negative) 07/10/21 Unknown Urine Ketones 80 mg/dL (Negative) 07/10/21 Unknown Urine Blood Neg (Negative) 07/10/21 Unknown Urine Nitrite Neg (Negative) 07/10/21 Unknown Urine Bilirubin Neg (Negative) 07/10/21 Unknown Urine Urobilinogen < 2.0 mg/dL (<2.0) 07/10/21 Unknown Ur Leukocyte Esterase Neg (Negative) 07/10/21 Unknown Urine WBC (Auto) < 1.0 /HPF (0.0-6.0) 07/10/21 Unknown Urine RBC (Auto) < 1.0 /HPF (0.0-6.0) 07/10/21 Unknown Plasma/Serum Alcohol < 0.01 % (0-0.07) 07/10/21 18:31 - Imaging and Cardiology CT scan - abdomen: report reviewed Assessment and Plan VTE prophylaxis?: Chemical Plan of care discussed with patient/family: Yes - Patient Problems (1) Hyperglycemia Current Visit: Yes Status: Acute Plan to address problem: Admit the patient to the medical telemetry. NPO. Normal saline at the rate of 125 cc/h. Humalog coverage every 6 hours with high-dose coverage. Lantus 30 units subcu nightly. We will consult diabetic education. Recheck BMP in the morning (2) Acute abdominal pain Current Visit: Yes Status: Acute Plan to address problem: NPO. Normal saline at the rate of 125 cc/h. Pepcid 20 mg IV every 12 hours. Morphine 2 mg IV every 4 hours as needed (3) Alcohol dependence Current Visit: Yes Status: Acute Plan to address problem: We counseled the patient regarding quit drinking. We put the patient on CIWA protocol and thiamine folic acid and banana bag daily (4) Hypertension Current Visit: Yes Status: Acute Plan to address problem: Hydralazine 10 mg IV every 6 hours as needed. We will continue the other home medication. (5) Diabetes Current Visit: Yes Status: Acute Plan to address problem: NPO. Normal saline at the rate of 125 cc/h. Humalog coverage every 6 hours with high-dose coverage. Lantus 30 units subcu nightly. We will consult diabetic education. Recheck BMP in the morning (6) Chronic pancreatitis Current Visit: Yes Status: Acute Plan to address problem: NPO. Normal saline at the rate of 125 cc/h. Pepcid 20 mg IV every 12 hours. Morphine 2 mg IV every 4 hours as needed (7) Metabolic acidosis Current Visit: Yes Status: Acute Plan to address problem: NPO. Normal saline at the rate of 125 cc/h. Pepcid 20 mg IV every 12 hours. Humalog sliding scale high-dose coverage every 6 hours. Recheck BMP in the morning (8) Nausea & vomiting Current Visit: Yes Status: Acute Plan to address problem: NPO. Normal saline at the rate of 125 cc/h. Pepcid 20 mg IV every 12 hours. Zofran 4 mg IV every 6 hours as needed (9) DVT prophylaxis Current Visit: Yes Status: Acute Plan to address problem: Heparin 5000 units subcu every 12 hours for DVT prophylaxis. Pepcid 20 mg IV every 12 hours for GI prophylaxis. Patient is a full code
[2021-07-11] MEDS: MORPHINE 4 MG/1 ML INJ IV PRN ×2 (03:11→08:18)
[2021-07-11] MEDS: INSULIN LISPRO 100 UNIT/ML SUB-Q SCH ×3 (08:19→17:38)
[2021-07-11] MEDS: IPRATROPIUM/ALBUTEROL SULFATE 3 ML AMPUL.NEB IH SCH ×3 (09:24→19:40)
--- NOTE | 2021-07-11 09:34 | Event Note ---
Date: 07/11/21 Patient was evaluated this morning, he was found to be hemodynamically stable. #Starvation ketoacidosis #Anion gap metabolic acidosis #Abdominal pain #Chronic pancreatitis #Nausea and vomiting Continue n.p.o. status. Status post 3 L IV fluid resuscitation. Trending electrolyte abnormalities with BMP to 6 hours. Continue maintenance fluids. Continue antiemetics as needed. #Insulin dependent type II diabetes mellitus with hyperglycemia - hemoglobin A1c: Pending - home regimen: Lantus 30 units nightly - current regimen: Lantus 30 units nightly and moderate SSI - blood glucose goal 140-180 while inpatient - continue to monitor #Hypertension - home medications: Lisinopril 10 mg daily - current medications: Lisinopril 10 mg daily and nifedipine 30mg daily - SBP goal <160 and DBP goal <90 while inpatient - continue to monitor #Alcohol dependence - Counseled patient on the importance of ETOH cessation. Assess patient's current ETOH consumption. Assisted with trying to arrange resources for patient to adequately work towards ETOH cessation. Patient expresses understanding. Initiating CIWA protocol. Continue daily thiamine, folic acid, and multivitamin. -Time: +15 mins #Coordination of CARE time: 30 minutes. Total visit time equals 30 or more minutes with greater than 50% spent [id number] on coordination of care and counseling. #Advanced care planning -Disease education conducted, care plan discussed, diagnoses discussed, prognosis discussed, and patient acknowledges understanding with care plan -Time: +30 min
[2021-07-11] MEDS ORDERED: LIPASE PO SCH (10:00)
[2021-07-11] MEDS ORDERED: PROTEASE PO SCH (10:00)
[2021-07-11] MEDS ORDERED: AMYLASE PO SCH (10:00)
[2021-07-11 10:32] LABS: Hematocrit 40.6 % (35.5-45.6); Hemoglobin 13.7 gm/dl (11.8-15.2); Mean Corpuscular HGB Conc 34 % (32-34); Mean Corpuscular Volume 100 fl (84-94); Platelet Count 243 K/mm3 (140-440); Red Blood Count 4.07 M/mm3 (3.65-5.03); Red Cell Distribution Width 13.2 % (13.2-15.2)
[2021-07-11] MEDS: FAMOTIDINE 20 MG/2 ML INJ IV SCH ×2 (11:11→21:29)
[2021-07-11] MEDS: HEPARIN 5,000 UNIT/1 ML VIAL SUB-Q SCH ×2 (11:11→21:29)
[2021-07-11] MEDS: SUCRALFATE 1 GM TAB PO SCH ×5 (11:12→21:29)
[2021-07-11] MEDS: LISINOPRIL 10 MG TAB PO SCH (11:13)
[2021-07-11 11:22] LABS: Blood Urea Nitrogen 8 mg/dL (9-20); Calcium 9.5 mg/dL (8.4-10.2); Hemolysis Index 19
[2021-07-11 11:27] LABS: BUN/Creatinine Ratio 11
[2021-07-11] MEDS: MORPHINE 2 MG/1 ML INJ IV PRN (15:13)
[2021-07-11] MEDS: NIFEdipine XL 30 MG TAB PO SCH ×2 (16:57→18:00)
[2021-07-11] MEDS: SODIUM CHLORIDE 0.9% 1000 ML 1,000 ML IV SCH (18:03)
--- NOTE | 2021-07-11 18:17 | Electrocardiograph Report ---
[facility] Test Date: 2021-07-10 Test Time: 21:50:25 Pat Name: CARLITOS WILSON Department: Room: A373 Gender: M Sterile Instrument Technician: TSERING : [id number] Requested By: JERZY MACEDO Order Number: [id number] Reading MD: Alessandra Owen Measurements Intervals [place] Rate: 110 P: 38 TN: 164 QRS: -18 QRSD: 80 T: 5 QT: 347 QTc: 469 Interpretive Statements Sinus tachycardia Probable left atrial enlargement No previous ECG available for comparison Electronically Signed On 07-11-2021 18:17:33 EDT by Alessandra Owen
[2021-07-11] MEDS: INSULIN GLARGINE 100 UNITS/ML SUB-Q SCH (21:30)
[2021-07-12] MEDS: MORPHINE 2 MG/1 ML INJ IV PRN ×5 (00:19→20:09)
[2021-07-12] MEDS: ONDANSETRON 4 MG/2 ML INJ IV PRN ×2 (00:21→05:13)
[2021-07-12] MEDS: INSULIN LISPRO 100 UNIT/ML SUB-Q SCH ×6 (00:23→22:47)
[2021-07-12] MEDS: SODIUM CHLORIDE 0.9% 1000 ML 1,000 ML IV SCH (00:31)
[2021-07-12] MEDS: MORPHINE 4 MG/1 ML INJ IV PRN ×2 (03:24→23:42)
[2021-07-12 05:12] LABS: Basophils % (Auto) 0.2 % (0.0-1.8); Eosinophils # (Auto) 0.1 K/mm3 (0.0-0.4); Eosinophils % (Auto) 0.6 % (0.0-4.3); Hematocrit 39.6 % (35.5-45.6); Hemoglobin 13.3 gm/dl (11.8-15.2); Lymphocytes # (Auto) 1.8 K/mm3 (1.2-5.4); Lymphocytes % (Auto) 17.9 % (13.4-35.0); Mean Corpuscular HGB Conc 33 % (32-34); Mean Corpuscular Volume 99 fl (84-94); Monocytes # (Auto) 1.1 K/mm3 (0.0-0.8); Monocytes % (Auto) 11.1 % (0.0-7.3); Platelet Count 241 K/mm3 (140-440); Red Blood Count 4.01 M/mm3 (3.65-5.03); Red Cell Distribution Width 12.8 % (13.2-15.2)
[2021-07-12 05:30] LABS: Blood Urea Nitrogen 4 mg/dL (9-20); Calcium 8.6 mg/dL (8.4-10.2); Hemolysis Index 4
[2021-07-12 05:45] LABS: BUN/Creatinine Ratio 8
[2021-07-12] MEDS ORDERED: POTASSIUM CHLORIDE ER 20 MEQ TAB PO NR (08:00)
[2021-07-12] MEDS: SUCRALFATE 1 GM TAB PO SCH ×5 (08:11→21:02)
[2021-07-12] MEDS: diphenhydrAMINE 25 MG CAP PO PRN ×3 (09:05→23:42)
[2021-07-12] MEDS: THIAMINE 100 MG TAB PO SCH (09:05)
[2021-07-12] MEDS: FAMOTIDINE 20 MG/2 ML INJ IV SCH (09:07)
[2021-07-12] MEDS: MULTIVITAMINS ,THERAPEUTIC TAB PO SCH (09:07)
[2021-07-12] MEDS: HEPARIN 5,000 UNIT/1 ML VIAL SUB-Q SCH ×3 (09:07→21:02)
[2021-07-12] MEDS: FOLIC ACID 1 MG TAB PO SCH (09:08)
[2021-07-12] MEDS: NIFEdipine XL 30 MG TAB PO SCH (09:08)
[2021-07-12] MEDS: LISINOPRIL 10 MG TAB PO SCH (09:09)
--- NOTE | 2021-07-12 10:40 | Progress Note ---
Assessment and Plan Assessment and plan: Patient was evaluated this morning, he was found to be hemodynamically stable. #Starvation ketoacidosisresolved #Anion gap metabolic acidosisresolved #Abdominal pain #Chronic pancreatitis secondary to alcohol dependence #Nausea and vomiting Starting cardiac/carbohydrate diet Trending electrolyte abnormalities with BMP to 6 hours. Continue maintenance fluids. Continue antiemetics as needed. Continue analgesics as needed #Insulin dependent type II diabetes mellitus with hyperglycemia - hemoglobin A1c: Pending - home regimen: Lantus 30 units nightly - current regimen: Lantus 30 units nightly and moderate SSI - blood glucose goal 140-180 while inpatient - continue to monitor #Hypertension - home medications: Lisinopril 10 mg daily - current medications: Lisinopril 10 mg daily and nifedipine 30mg daily - SBP goal <160 and DBP goal <90 while inpatient - continue to monitor #Alcohol dependence - Counseled patient on the importance of ETOH cessation. Assess patient's current ETOH consumption. Assisted with trying to arrange resources for patient to adequately work towards ETOH cessation. Patient expresses understanding. Continue CIWA protocol. Continue daily thiamine, folic acid, and multivitamin. Monitor for possible alcohol withdrawal. -Time: +15 mins #Advanced care planning -Disease education conducted, care plan discussed, diagnoses discussed, prognosis discussed, and patient acknowledges understanding with care plan -Time: +30 min #Discharge planning - Patient is pending improvement in chronic pancreatitis - Case management has been made aware. Disposition Plan: Continue medical management Total Time Spent with Patient (Minutes): 45 minutes History Interval history: No acute events overnight. Hospitalist Physical - Constitutional Vitals: Temp Pulse Resp BP Pulse Ox 98.2 F 100 H 18 126/94 96 07/12/21 05:25 07/12/21 05:25 07/11/21 22:20 07/12/21 05:25 07/12/21 10:00 General appearance: Present: no acute distress, disheveled - EENT Eyes: Present: PERRL, EOM intact ENT: hearing intact, clear oral mucosa - Neck Neck: Present: supple, normal ROM - Respiratory Respiratory effort: normal Respiratory: bilateral: CTA - Cardiovascular Rhythm: regular Heart Sounds: Present: S1 & S2 - Extremities Extremities: no ischemia, pulses intact, pulses symmetrical, No edema, normal temperature, normal color Peripheral Pulses: within normal limits - Abdominal General gastrointestinal: soft, non-tender, tender, normal bowel sounds Localized gastrointestinal: tender: epigastric periumbilical - Integumentary Integumentary: Present: clear, warm, dry - Psychiatric Psychiatric: appropriate mood/affect, cooperative, other (Limited insight regarding overall clinical picture in relation to alcohol consumption) - Neurologic Neurologic: CNII-XII intact, moves all extremities - Allied Health Allied health notes reviewed: nursing Results - Labs CBC & Chem 7: 07/12/21 04:43 07/12/21 04:43 Labs: Laboratory Last Values WBC 10.0 K/mm3 (4.5-11.0) 07/12/21 04:43 RBC 4.01 M/mm3 (3.65-5.03) 07/12/21 04:43 Hgb 13.3 gm/dl (11.8-15.2) 07/12/21 04:43 Hct 39.6 % (35.5-45.6) 07/12/21 04:43 MCV 99 fl (84-94) H 07/12/21 04:43 MCH 33 pg (28-32) H 07/12/21 04:43 MCHC 33 % (32-34) 07/12/21 04:43 RDW 12.8 % (13.2-15.2) L 07/12/21 04:43 Plt Count 241 K/mm3 (140-440) 07/12/21 04:43 Lymph % (Auto) 17.9 % (13.4-35.0) 07/12/21 04:43 [place] % (Auto) 11.1 % (0.0-7.3) H 07/12/21 04:43 Eos % (Auto) 0.6 % (0.0-4.3) 07/12/21 04:43 Baso % (Auto) 0.2 % (0.0-1.8) 07/12/21 04:43 Lymph # (Auto) 1.8 K/mm3 (1.2-5.4) 07/12/21 04:43 [place] # (Auto) 1.1 K/mm3 (0.0-0.8) H 07/12/21 04:43 Eos # (Auto) 0.1 K/mm3 (0.0-0.4) 07/12/21 04:43 Baso # (Auto) 0.0 K/mm3 (0.0-0.1) 07/12/21 04:43 Seg Neutrophils % 70.2 % (40.0-70.0) H 07/12/21 04:43 Seg Neutrophils # 7.0 K/mm3 (1.8-7.7) 07/12/21 04:43 VBG pH 7.385 (7.320-7.420) 07/10/21 18:31 Sodium 132 mmol/L (137-145) L 07/12/21 04:43 Potassium 3.4 mmol/L (3.6-5.0) L 07/12/21 04:43 Chloride 98.4 mmol/L (98-107) 07/12/21 04:43 Carbon Dioxide 21 mmol/L (22-30) L 07/12/21 04:43 Anion Gap 16 mmol/L 07/12/21 04:43 BUN 4 mg/dL (9-20) L 07/12/21 04:43 Creatinine 0.5 mg/dL (0.8-1.3) L 07/12/21 04:43 Estimated GFR > 60 ml/min 07/12/21 04:43 BUN/Creatinine Ratio 8 % 07/12/21 04:43 Glucose 168 mg/dL (75-100) H 07/12/21 04:43 POC Glucose 159 mg/dL (70-105) H 07/12/21 05:07 Calcium 8.6 mg/dL (8.4-10.2) 07/12/21 04:43 Total Bilirubin 0.60 mg/dL (0.1-1.2) 07/10/21 12:10 AST 19 units/L (5-40) 07/10/21 12:10 ALT 17 units/L (7-56) 07/10/21 12:10 Alkaline Phosphatase 138 units/L (35-129) H 07/10/21 12:10 Total Protein 8.3 g/dL (6.3-8.2) H 07/10/21 12:10 Albumin 5.3 g/dL (3.9-5) H 07/10/21 12:10 Albumin/Globulin Ratio 1.8 % 07/10/21 12:10 Lipase 95 units/L (13-60) H 07/10/21 12:10 Urine Color Straw (Yellow) 07/10/21 Unknown Urine Turbidity Clear (Clear) 07/10/21 Unknown Urine pH 5.0 (5.0-7.0) 07/10/21 Unknown Ur Specific [place] 1.025 (1.003-1.030) 07/10/21 Unknown Urine Protein 30 mg/dl mg/dL (Negative) 07/10/21 Unknown Urine Glucose (UA) >=500 mg/dL (Negative) 07/10/21 Unknown Urine Ketones 80 mg/dL (Negative) 07/10/21 Unknown Urine Blood Neg (Negative) 07/10/21 Unknown Urine Nitrite Neg (Negative) 07/10/21 Unknown Urine Bilirubin Neg (Negative) 07/10/21 Unknown Urine Urobilinogen < 2.0 mg/dL (<2.0) 07/10/21 Unknown Ur Leukocyte Esterase Neg (Negative) 07/10/21 Unknown Urine WBC (Auto) < 1.0 /HPF (0.0-6.0) 07/10/21 Unknown Urine RBC (Auto) < 1.0 /HPF (0.0-6.0) 07/10/21 Unknown Plasma/Serum Alcohol < 0.01 % (0-0.07) 07/10/21 18:31 [place]/IV: Voiding Method Incontinent Active Medications - Current Medications Current Medications: Generic Name Dose Route Start Last Admin Trade Name Freq PRN Reason Stop Dose Admin Acetaminophen 650 mg 07/11/21 02:18 Acetaminophen 325 Mg Tab PO Q4H PRN Pain MILD(1-3)/Fever >100.5/CAMPUZANO Albuterol 2.5 mg 07/11/21 02:18 Albuterol 2.5 Mg/3 Ml Nebu IH Q3HRT PRN Shortness Of Breath Dextrose 50 ml 07/11/21 02:18 Dextrose 50% In Water (25gm) 50 Ml Syringe IV Q30MIN PRN Hypoglycemia Protocol Diphenhydramine HCl 25 mg 07/12/21 08:39 07/12/21 09:05 Diphenhydramine 25 Mg Cap PO 25 mg Q6H PRN Administration Itching Famotidine 20 mg 07/11/21 10:00 07/12/21 09:07 Famotidine 20 Mg/2 Ml Inj IV 07/12/21 12:00 20 mg BID ARMANDO Administration Famotidine 20 mg 07/12/21 22:00 Famotidine 20 Mg Tab PO BID ARMANDO Folic Acid 1 mg 07/12/21 10:00 07/12/21 09:08 Folic Acid 1 Mg Tab PO 1 mg QDAY [facility] Administration Heparin Sodium (Porcine) 5,000 unit 07/11/21 10:00 07/12/21 09:07 Heparin 5,000 Unit/1 Ml Vial SUB-Q 5,000 unit Q12HR ARMANDO Administration Hydralazine HCl 10 mg 07/11/21 02:22 Hydralazine 20 Mg/1 Ml Inj IV Q6H PRN SBP >/=160; DBP >/=100 Insulin Glargine 30 units 07/11/21 22:00 07/11/21 21:30 Insulin Glargine 100 Units/Ml SUB-Q 30 units QHS [facility] Administration Insulin Human Lispro 0 unit 07/11/21 06:00 07/12/21 05:12 Insulin Lispro 100 Unit/Ml SUB-Q Not Given Q6HR [facility] Protocol Lisinopril 10 mg 07/11/21 10:00 07/12/21 09:09 Lisinopril 10 Mg Tab PO 10 mg QDAY ARMANDO Administration Lorazepam 2 mg 07/10/21 23:28 07/11/21 15:13 Lorazepam 2 Mg/Ml Vial IV 2 mg Q1HR PRN Administration CIWA-Ar 8-15 Lorazepam 4 mg 07/10/21 23:28 07/11/21 20:01 Lorazepam 2 Mg/Ml Vial IV 4 mg Q1HR PRN Administration CIWA-Ar 16-25 Lorazepam 4 mg 07/10/21 23:28 Lorazepam 2 Mg/Ml Vial IV Q15MIN PRN CIWA-Ar >25 Morphine Sulfate 2 mg 07/11/21 02:18 07/12/21 09:41 Morphine 2 Mg/1 Ml Inj IV 2 mg Q4H PRN Administration Pain, Moderate (4-6) Morphine Sulfate 4 mg 07/11/21 02:18 07/12/21 03:24 Morphine 4 Mg/1 Ml Inj IV 4 mg Q4H PRN Administration Pain , Severe (7-10) Multivitamins 1 each 07/12/21 10:00 07/12/21 09:07 Multivitamins ,Therapeutic Tab PO 1 each QDAY [facility] Administration Nifedipine 30 mg 07/11/21 13:00 07/12/21 09:08 Nifedipine Xl 30 Mg Tab PO 30 mg QDAY ARMANDO Administration Ondansetron HCl 4 mg 07/11/21 02:18 07/12/21 05:13 Ondansetron 4 Mg/2 Ml Inj IV 4 mg Q8H PRN Administration Nausea And Vomiting Potassium Chloride 40 meq 07/12/21 08:00 07/12/21 08:10 Potassium Chloride Er 20 Meq Tab PO 07/12/21 12:00 40 meq ONCE@0800 NR Administration Sodium Chloride 10 ml 07/11/21 10:00 07/12/21 09:08 Sodium Chloride 0.9% 10 Ml Flush Syringe IV 10 ml BID ARMANDO Administration Sodium Chloride 10 ml 07/11/21 02:18 Sodium Chloride 0.9% 10 Ml Flush Syringe IV PRN PRN LINE FLUSH Sucralfate 1 gm 07/11/21 07:30 07/12/21 08:11 Sucralfate 1 Gm Tab PO 1 gm ACHS ARMANDO Administration Thiamine HCl 100 mg 07/12/21 10:00 07/12/21 09:05 Thiamine 100 Mg Tab PO 100 mg QDAY ARMANDO Administration Nutrition/Malnutrition Assess - Dietary Evaluation Nutrition/Malnutrition Findings: Nutrition Notes Start: 07/11/21 09:47 Freq: Status: Active Protocol: Document 07/11/21 09:47 JENNIFFER (Rec: 07/11/21 09:55 JENNIFFER [id number]) Nutrition Notes Need for Assessment generated from: MD Order,Education Initial or Follow up Brief Note Current Diagnosis Diabetes,Hypertension Other Pertinent Diagnosis Hyperglycemia, EtOH dependence , chronic pancreatitis Current Diet NPO Labs/Tests BG 423 Pertinent Medications Reviewed Height 5 ft 9 in Weight 70.307 kg [place] Body Weight (kg) 72.72 BMI 22.8 Weight Status Appropriate Subjective/Other Information RD consulted for diet education. Pt in ED at this time. Pt admitted sec to abdominal pain/cramping and N/ V. He is currently on CIWA protocol. Burn Absent Trauma Absent GI Symptoms Nausea,Vomiting Is patient on ventilator? No Is Patient Ambulatory and/or Out of Bed Yes REE-([facility] Jeor-ambulatory/OOB) [ 2006.485 [id number]] Calculation Used for Recommendations [place]-St Jeor Additional Notes Pro needs 0.8-1g/k-70g/ day Fluid needs 1ml/kcal Nutrition Intervention Follow-Up By: 07/13/21 Additional Comments F/U: diet advancement, diet education needs, malnutrition assessment
[2021-07-12] MEDS: LORazepam 2 MG/ML VIAL IV PRN ×3 (12:42→21:18)
[2021-07-12] MEDS: FAMOTIDINE 20 MG TAB PO SCH ×2 (20:10→21:02)
[2021-07-12] MEDS: INSULIN GLARGINE 100 UNITS/ML SUB-Q SCH (22:47)
[2021-07-13] MEDS: LORazepam 2 MG/ML VIAL IV PRN ×2 (02:17→19:46)
[2021-07-13 05:56] LABS: Alanine Aminotransferase 95 units/L (7-56); Blood Urea Nitrogen 7 mg/dL (9-20); Calcium 9.5 mg/dL (8.4-10.2); Hemolysis Index 11
[2021-07-13 06:06] LABS: BUN/Creatinine Ratio 12
[2021-07-13] MEDS: INSULIN LISPRO 100 UNIT/ML SUB-Q SCH ×4 (07:48→21:06)
[2021-07-13] MEDS: SUCRALFATE 1 GM TAB PO SCH ×4 (07:55→21:06)
[2021-07-13] MEDS: MORPHINE 2 MG/1 ML INJ IV PRN ×3 (07:55→16:52)
[2021-07-13] MEDS: NIFEdipine XL 30 MG TAB PO SCH (09:12)
[2021-07-13] MEDS: MULTIVITAMINS ,THERAPEUTIC TAB PO SCH (09:12)
[2021-07-13] MEDS: THIAMINE 100 MG TAB PO SCH (09:12)
[2021-07-13] MEDS: LISINOPRIL 10 MG TAB PO SCH (09:12)
[2021-07-13] MEDS: FOLIC ACID 1 MG TAB PO SCH (09:12)
[2021-07-13] MEDS: FAMOTIDINE 20 MG TAB PO SCH ×2 (09:12→21:05)
[2021-07-13] MEDS: HEPARIN 5,000 UNIT/1 ML VIAL SUB-Q SCH ×2 (09:13→21:05)
[2021-07-13] MEDS ORDERED: POTASSIUM CHLORIDE ER 20 MEQ TAB PO NR (10:00)
--- NOTE | 2021-07-13 11:14 | Progress Note ---
Assessment and Plan Assessment and plan: 51-year-old male with past medical history of alcohol abuse, diabetes, hypertension, and chronic pancreatitis was brought to the emergency room because of diffuse abdominal pain, cramping, nausea and vomiting. In the emergency room patient is found to have glucose of 416, bicarb 19, sodium 130, plasma alcohol level 0.01. Starvation ketoacidosisresolved Anion gap metabolic acidosisresolved Abdominal pain Chronic pancreatitis secondary to alcohol dependence Nausea and vomiting Starting cardiac/carbohydrate diet Trending electrolyte abnormalities with BMP to 6 hours. Continue maintenance fluids. Continue antiemetics as needed. 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 Assess patient's current ETOH consumption. Assisted with trying to arrange resources for patient to adequately work towards ETOH cessation. Patient expresses understanding. Continue CIWA protocol. Continue daily thiamine, folic acid, and multivitamin. Hypokalemia Replete potassium History Interval history: No new issues overnight Hospitalist Physical - Constitutional Vitals: Temp Pulse Resp BP Pulse Ox 98.6 F 78 20 111/80 97 07/13/21 05:41 07/13/21 05:41 07/13/21 05:41 07/13/21 05:41 07/13/21 07:25 General appearance: Present: no acute distress, disheveled - EENT Eyes: Present: PERRL, EOM intact ENT: hearing intact, clear oral mucosa, dentition normal - Neck Neck: Present: supple, normal ROM - Respiratory Respiratory effort: normal Respiratory: bilateral: CTA - Cardiovascular Rhythm: regular Heart Sounds: Present: S1 & S2. Absent: gallop, rub - Extremities Extremities: no ischemia, No edema, Full ROM - Abdominal General gastrointestinal: soft, non-tender, non-distended, normal bowel sounds - Integumentary Integumentary: Present: clear, warm, dry - Neurologic Neurologic: CNII-XII intact, moves all extremities Results - Labs CBC & Chem 7: 07/12/21 04:43 07/13/21 04:18 Labs: Laboratory Last Values WBC 10.0 K/mm3 (4.5-11.0) 07/12/21 04:43 RBC 4.01 M/mm3 (3.65-5.03) 07/12/21 04:43 Hgb 13.3 gm/dl (11.8-15.2) 07/12/21 04:43 Hct 39.6 % (35.5-45.6) 07/12/21 04:43 MCV 99 fl (84-94) H 07/12/21 04:43 MCH 33 pg (28-32) H 07/12/21 04:43 MCHC 33 % (32-34) 07/12/21 04:43 RDW 12.8 % (13.2-15.2) L 07/12/21 04:43 Plt Count 241 K/mm3 (140-440) 07/12/21 04:43 Lymph % (Auto) 17.9 % (13.4-35.0) 07/12/21 04:43 [place] % (Auto) 11.1 % (0.0-7.3) H 07/12/21 04:43 Eos % (Auto) 0.6 % (0.0-4.3) 07/12/21 04:43 Baso % (Auto) 0.2 % (0.0-1.8) 07/12/21 04:43 Lymph # (Auto) 1.8 K/mm3 (1.2-5.4) 07/12/21 04:43 [place] # (Auto) 1.1 K/mm3 (0.0-0.8) H 07/12/21 04:43 Eos # (Auto) 0.1 K/mm3 (0.0-0.4) 07/12/21 04:43 Baso # (Auto) 0.0 K/mm3 (0.0-0.1) 07/12/21 04:43 Seg Neutrophils % 70.2 % (40.0-70.0) H 07/12/21 04:43 Seg Neutrophils # 7.0 K/mm3 (1.8-7.7) 07/12/21 04:43 VBG pH 7.385 (7.320-7.420) 07/10/21 18:31 Sodium 136 mmol/L (137-145) L 07/13/21 04:18 Potassium 3.0 mmol/L (3.6-5.0) L 07/13/21 04:18 Chloride 98.6 mmol/L (98-107) 07/13/21 04:18 Carbon Dioxide 24 mmol/L (22-30) 07/13/21 04:18 Anion Gap 16 mmol/L 07/13/21 04:18 BUN 7 mg/dL (9-20) L 07/13/21 04:18 Creatinine 0.6 mg/dL (0.8-1.3) L 07/13/21 04:18 Estimated GFR > 60 ml/min 07/13/21 04:18 BUN/Creatinine Ratio 12 % 07/13/21 04:18 Glucose 138 mg/dL (75-100) H 07/13/21 04:18 POC Glucose 136 mg/dL (70-105) H 07/13/21 07:35 Calcium 9.5 mg/dL (8.4-10.2) 07/13/21 04:18 Total Bilirubin 0.70 mg/dL (0.1-1.2) 07/13/21 04:18 AST 263 units/L (5-40) H 07/13/21 04:18 ALT 95 units/L (7-56) H 07/13/21 04:18 Alkaline Phosphatase 216 units/L (35-129) H 07/13/21 04:18 Total Protein 7.1 g/dL (6.3-8.2) 07/13/21 04:18 Albumin 4.0 g/dL (3.9-5) 07/13/21 04:18 Albumin/Globulin Ratio 1.3 % 07/13/21 04:18 Lipase 95 units/L (13-60) H 07/10/21 12:10 Urine Color Straw (Yellow) 07/10/21 Unknown Urine Turbidity Clear (Clear) 07/10/21 Unknown Urine pH 5.0 (5.0-7.0) 07/10/21 Unknown Ur Specific [place] 1.025 (1.003-1.030) 07/10/21 Unknown Urine Protein 30 mg/dl mg/dL (Negative) 07/10/21 Unknown Urine Glucose (UA) >=500 mg/dL (Negative) 07/10/21 Unknown Urine Ketones 80 mg/dL (Negative) 07/10/21 Unknown Urine Blood Neg (Negative) 07/10/21 Unknown Urine Nitrite Neg (Negative) 07/10/21 Unknown Urine Bilirubin Neg (Negative) 07/10/21 Unknown Urine Urobilinogen < 2.0 mg/dL (<2.0) 07/10/21 Unknown Ur Leukocyte Esterase Neg (Negative) 07/10/21 Unknown Urine WBC (Auto) < 1.0 /HPF (0.0-6.0) 07/10/21 Unknown Urine RBC (Auto) < 1.0 /HPF (0.0-6.0) 07/10/21 Unknown Plasma/Serum Alcohol < 0.01 % (0-0.07) 07/10/21 18:31 Burroughs/IV: Voiding Method Toilet Active Medications - Current Medications Current Medications: Generic Name Dose Route Start Last Admin Trade Name Freq PRN Reason Stop Dose Admin Acetaminophen 650 mg 07/11/21 02:18 Acetaminophen 325 Mg Tab PO Q4H PRN Pain MILD(1-3)/Fever >100.5/CAMPUZANO Albuterol 2.5 mg 07/11/21 02:18 Albuterol 2.5 Mg/3 Ml Nebu IH Q3HRT PRN Shortness Of Breath Dextrose 50 ml 07/11/21 02:18 Dextrose 50% In Water (25gm) 50 Ml Syringe IV Q30MIN PRN Hypoglycemia Protocol Diphenhydramine HCl 25 mg 07/12/21 08:39 07/12/21 23:42 Diphenhydramine 25 Mg Cap PO 25 mg Q6H PRN Administration Itching Famotidine 20 mg 07/12/21 22:00 07/13/21 09:12 Famotidine 20 Mg Tab PO 20 mg BID ARMANDO Administration Folic Acid 1 mg 07/12/21 10:00 07/13/21 09:12 Folic Acid 1 Mg Tab PO 1 mg QDAY ARMANDO Administration Heparin Sodium (Porcine) 5,000 unit 07/11/21 10:00 07/13/21 09:13 Heparin 5,000 Unit/1 Ml Vial SUB-Q 5,000 unit Q12HR ARMANDO Administration Hydralazine HCl 10 mg 07/11/21 02:22 Hydralazine 20 Mg/1 Ml Inj IV Q6H PRN SBP >/=160; DBP >/=100 Insulin Glargine 30 units 07/11/21 22:00 07/12/21 22:47 Insulin Glargine 100 Units/Ml SUB-Q 30 units QHS ARMANDO Administration Insulin Human Lispro 0 unit 07/12/21 16:30 07/13/21 07:48 Insulin Lispro 100 Unit/Ml SUB-Q Not Given ACHS [facility] Protocol Lisinopril 10 mg 07/11/21 10:00 07/13/21 09:12 Lisinopril 10 Mg Tab PO 10 mg QDAY ARMANDO Administration Lorazepam 2 mg 07/10/21 23:28 07/12/21 17:07 Lorazepam 2 Mg/Ml Vial IV 2 mg Q1HR PRN Administration CIWA-Ar 8-15 Lorazepam 4 mg 07/10/21 23:28 07/13/21 02:17 Lorazepam 2 Mg/Ml Vial IV 4 mg Q1HR PRN Administration CIWA-Ar 16-25 Lorazepam 4 mg 07/10/21 23:28 Lorazepam 2 Mg/Ml Vial IV Q15MIN PRN CIWA-Ar >25 Morphine Sulfate 2 mg 07/11/21 02:18 07/13/21 07:55 Morphine 2 Mg/1 Ml Inj IV 2 mg Q4H PRN Administration Pain, Moderate (4-6) Morphine Sulfate 4 mg 07/11/21 02:18 07/12/21 23:42 Morphine 4 Mg/1 Ml Inj IV 4 mg Q4H PRN Administration Pain , Severe (7-10) Multivitamins 1 each 07/12/21 10:00 07/13/21 09:12 Multivitamins ,Therapeutic Tab PO 1 each QDAY ARMANDO Administration Nifedipine 30 mg 07/11/21 13:00 07/13/21 09:12 Nifedipine Xl 30 Mg Tab PO 30 mg QDAY ARMANDO Administration Ondansetron HCl 4 mg 07/11/21 02:18 07/12/21 05:13 Ondansetron 4 Mg/2 Ml Inj IV 4 mg Q8H PRN Administration Nausea And Vomiting Potassium Chloride 40 meq 07/13/21 10:00 07/13/21 10:19 Potassium Chloride Er 20 Meq Tab PO 07/13/21 13:00 40 meq ONCE@1000 NR Administration Sodium Chloride 10 ml 07/11/21 10:00 07/13/21 09:12 Sodium Chloride 0.9% 10 Ml Flush Syringe IV 10 ml BID ARMANDO Administration Sodium Chloride 10 ml 07/11/21 02:18 07/13/21 02:17 Sodium Chloride 0.9% 10 Ml Flush Syringe IV 10 ml PRN PRN Administration LINE FLUSH Sucralfate 1 gm 07/11/21 07:30 07/13/21 07:55 Sucralfate 1 Gm Tab PO 1 gm ACHS ARMANDO Administration Thiamine HCl 100 mg 07/12/21 10:00 07/13/21 09:12 Thiamine 100 Mg Tab PO 100 mg QDAY ARMANDO Administration Nutrition/Malnutrition Assess - Dietary Evaluation Nutrition/Malnutrition Findings: Nutrition Notes Start: 07/11/21 09:47 Freq: Status: Active Protocol: Document 07/11/21 09:47 JENNIFFER (Rec: 07/11/21 09:55 JENNIFFER [id number]) Nutrition Notes Need for Assessment generated from: MD Order,Education Initial or Follow up Brief Note Current Diagnosis Diabetes,Hypertension Other Pertinent Diagnosis Hyperglycemia, EtOH dependence , chronic pancreatitis Current Diet NPO Labs/Tests BG 423 Pertinent Medications Reviewed Height 5 ft 9 in Weight 70.307 kg [place] Body Weight (kg) 72.72 BMI 22.8 Weight Status Appropriate Subjective/Other Information RD consulted for diet education. Pt in ED at this time. Pt admitted sec to abdominal pain/cramping and N/ V. He is currently on CIWA protocol. Burn Absent Trauma Absent GI Symptoms Nausea,Vomiting Is patient on ventilator? No Is Patient Ambulatory and/or Out of Bed Yes REE-([facility]-ambulatory/OOB) [ 2006.485 NUTR.MSJOOB] Calculation Used for Recommendations [facility] Additional Notes Pro needs 0.8-1g/k-70g/ day Fluid needs 1ml/kcal Nutrition Intervention Follow-Up By: 07/13/21 Additional Comments F/U: diet advancement, diet education needs, malnutrition assessment
[2021-07-13] MEDS: diphenhydrAMINE 25 MG CAP PO PRN ×2 (12:06→21:04)
[2021-07-13] MEDS: ACETAMINOPHEN 325 MG TAB PO PRN (19:46)
[2021-07-13] MEDS: INSULIN GLARGINE 100 UNITS/ML SUB-Q SCH (21:05)
[2021-07-13] MEDS: MORPHINE 4 MG/1 ML INJ IV PRN (21:06)
[2021-07-14] MEDS: LORazepam 2 MG/ML VIAL IV PRN (00:24)
[2021-07-14] MEDS: MORPHINE 4 MG/1 ML INJ IV PRN ×2 (02:33→13:38)
[2021-07-14] MEDS: diphenhydrAMINE 25 MG CAP PO PRN ×3 (02:33→20:18)
[2021-07-14] MEDS: ACETAMINOPHEN 325 MG TAB PO PRN (03:21)
[2021-07-14] MEDS: INSULIN LISPRO 100 UNIT/ML SUB-Q SCH ×4 (08:31→23:11)
[2021-07-14] MEDS: HEPARIN 5,000 UNIT/1 ML VIAL SUB-Q SCH ×2 (09:06→22:09)
[2021-07-14] MEDS: MORPHINE 2 MG/1 ML INJ IV PRN (09:10)
[2021-07-14] MEDS: LISINOPRIL 10 MG TAB PO SCH (09:11)
[2021-07-14] MEDS: THIAMINE 100 MG TAB PO SCH (09:11)
[2021-07-14] MEDS: NIFEdipine XL 30 MG TAB PO SCH (09:11)
[2021-07-14] MEDS: SUCRALFATE 1 GM TAB PO SCH ×4 (09:11→22:08)
[2021-07-14] MEDS: FAMOTIDINE 20 MG TAB PO SCH ×2 (09:12→23:11)
[2021-07-14] MEDS: MULTIVITAMINS ,THERAPEUTIC TAB PO SCH (09:12)
[2021-07-14] MEDS: FOLIC ACID 1 MG TAB PO SCH (09:12)
--- NOTE | 2021-07-14 13:15 | Progress Note ---
Assessment and Plan Assessment and plan: 51-year-old male with past medical history of alcohol abuse, diabetes, hypertension, and chronic pancreatitis was brought to the emergency room because of diffuse abdominal pain, cramping, nausea and vomiting. In the emergency room patient is found to have glucose of 416, bicarb 19, sodium 130, plasma alcohol level 0.01. Starvation ketoacidosisresolved Anion gap metabolic acidosisresolved Abdominal pain Chronic pancreatitis secondary to alcohol dependence Nausea and vomiting Starting cardiac/carbohydrate diet Trending electrolyte abnormalities with BMP to 6 hours. Continue maintenance fluids. Continue antiemetics as needed. 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 Assess patient's current ETOH consumption. Assisted with trying to arrange resources for patient to adequately work towards ETOH cessation. Patient expresses understanding. Continue CIWA protocol. Continue daily thiamine, folic acid, and multivitamin. Hypokalemia Replete potassium History Interval history: No new issues overnight Hospitalist Physical - Constitutional Vitals: Temp Pulse Resp BP Pulse Ox 98.7 F 75 18 110/75 96 07/13/21 22:38 07/14/21 09:11 07/14/21 10:00 07/14/21 09:11 07/14/21 08:45 General appearance: Present: no acute distress, disheveled - EENT Eyes: Present: PERRL, EOM intact ENT: hearing intact, clear oral mucosa, dentition normal - Neck Neck: Present: supple, normal ROM - Respiratory Respiratory effort: normal Respiratory: bilateral: CTA - Cardiovascular Rhythm: regular Heart Sounds: Present: S1 & S2. Absent: gallop, rub - Extremities Extremities: no ischemia, No edema, Full ROM - Abdominal General gastrointestinal: soft, non-tender, non-distended, normal bowel sounds - Integumentary Integumentary: Present: clear, warm, dry - Neurologic Neurologic: CNII-XII intact, moves all extremities Results - Labs CBC & Chem 7: 07/12/21 04:43 07/13/21 04:18 Labs: Laboratory Last Values WBC 10.0 K/mm3 (4.5-11.0) 07/12/21 04:43 RBC 4.01 M/mm3 (3.65-5.03) 07/12/21 04:43 Hgb 13.3 gm/dl (11.8-15.2) 07/12/21 04:43 Hct 39.6 % (35.5-45.6) 07/12/21 04:43 MCV 99 fl (84-94) H 07/12/21 04:43 MCH 33 pg (28-32) H 07/12/21 04:43 MCHC 33 % (32-34) 07/12/21 04:43 RDW 12.8 % (13.2-15.2) L 07/12/21 04:43 Plt Count 241 K/mm3 (140-440) 07/12/21 04:43 Lymph % (Auto) 17.9 % (13.4-35.0) 07/12/21 04:43 [place] % (Auto) 11.1 % (0.0-7.3) H 07/12/21 04:43 Eos % (Auto) 0.6 % (0.0-4.3) 07/12/21 04:43 Baso % (Auto) 0.2 % (0.0-1.8) 07/12/21 04:43 Lymph # (Auto) 1.8 K/mm3 (1.2-5.4) 07/12/21 04:43 [place] # (Auto) 1.1 K/mm3 (0.0-0.8) H 07/12/21 04:43 Eos # (Auto) 0.1 K/mm3 (0.0-0.4) 07/12/21 04:43 Baso # (Auto) 0.0 K/mm3 (0.0-0.1) 07/12/21 04:43 Seg Neutrophils % 70.2 % (40.0-70.0) H 07/12/21 04:43 Seg Neutrophils # 7.0 K/mm3 (1.8-7.7) 07/12/21 04:43 VBG pH 7.385 (7.320-7.420) 07/10/21 18:31 Sodium 136 mmol/L (137-145) L 07/13/21 04:18 Potassium 3.0 mmol/L (3.6-5.0) L 07/13/21 04:18 Chloride 98.6 mmol/L (98-107) 07/13/21 04:18 Carbon Dioxide 24 mmol/L (22-30) 07/13/21 04:18 Anion Gap 16 mmol/L 07/13/21 04:18 BUN 7 mg/dL (9-20) L 07/13/21 04:18 Creatinine 0.6 mg/dL (0.8-1.3) L 07/13/21 04:18 Estimated GFR > 60 ml/min 07/13/21 04:18 BUN/Creatinine Ratio 12 % 07/13/21 04:18 Glucose 138 mg/dL (75-100) H 07/13/21 04:18 POC Glucose 233 mg/dL (70-105) H 07/14/21 11:39 Calcium 9.5 mg/dL (8.4-10.2) 07/13/21 04:18 Total Bilirubin 0.70 mg/dL (0.1-1.2) 07/13/21 04:18 AST 263 units/L (5-40) H 07/13/21 04:18 ALT 95 units/L (7-56) H 07/13/21 04:18 Alkaline Phosphatase 216 units/L (35-129) H 07/13/21 04:18 Total Protein 7.1 g/dL (6.3-8.2) 07/13/21 04:18 Albumin 4.0 g/dL (3.9-5) 07/13/21 04:18 Albumin/Globulin Ratio 1.3 % 07/13/21 04:18 Lipase 95 units/L (13-60) H 07/10/21 12:10 Urine Color Straw (Yellow) 07/10/21 Unknown Urine Turbidity Clear (Clear) 07/10/21 Unknown Urine pH 5.0 (5.0-7.0) 07/10/21 Unknown Ur Specific [place] 1.025 (1.003-1.030) 07/10/21 Unknown Urine Protein 30 mg/dl mg/dL (Negative) 07/10/21 Unknown Urine Glucose (UA) >=500 mg/dL (Negative) 07/10/21 Unknown Urine Ketones 80 mg/dL (Negative) 07/10/21 Unknown Urine Blood Neg (Negative) 07/10/21 Unknown Urine Nitrite Neg (Negative) 07/10/21 Unknown Urine Bilirubin Neg (Negative) 07/10/21 Unknown Urine Urobilinogen < 2.0 mg/dL (<2.0) 07/10/21 Unknown Ur Leukocyte Esterase Neg (Negative) 07/10/21 Unknown Urine WBC (Auto) < 1.0 /HPF (0.0-6.0) 07/10/21 Unknown Urine RBC (Auto) < 1.0 /HPF (0.0-6.0) 07/10/21 Unknown Plasma/Serum Alcohol < 0.01 % (0-0.07) 07/10/21 18:31 Burroughs/IV: Voiding Method Toilet Active Medications - Current Medications Current Medications: Generic Name Dose Route Start Last Admin Trade Name Freq PRN Reason Stop Dose Admin Acetaminophen 650 mg 07/11/21 02:18 07/14/21 03:21 Acetaminophen 325 Mg Tab PO 650 mg Q4H PRN Administration Pain MILD(1-3)/Fever >100.5/CAMPUZANO Albuterol 2.5 mg 07/11/21 02:18 Albuterol 2.5 Mg/3 Ml Nebu IH Q3HRT PRN Shortness Of Breath Dextrose 50 ml 07/11/21 02:18 Dextrose 50% In Water (25gm) 50 Ml Syringe IV Q30MIN PRN Hypoglycemia Protocol Diphenhydramine HCl 25 mg 07/12/21 08:39 07/14/21 02:33 Diphenhydramine 25 Mg Cap PO 25 mg Q6H PRN Administration Itching Famotidine 20 mg 07/12/21 22:00 07/14/21 09:12 Famotidine 20 Mg Tab PO 20 mg BID ARMANDO Administration Folic Acid 1 mg 07/12/21 10:00 07/14/21 09:12 Folic Acid 1 Mg Tab PO 1 mg QDAY ARMANDO Administration Heparin Sodium (Porcine) 5,000 unit 07/11/21 10:00 07/14/21 09:06 Heparin 5,000 Unit/1 Ml Vial SUB-Q 5,000 unit Q12HR ARMANDO Administration Hydralazine HCl 10 mg 07/11/21 02:22 Hydralazine 20 Mg/1 Ml Inj IV Q6H PRN SBP >/=160; DBP >/=100 Insulin Glargine 30 units 07/11/21 22:00 07/13/21 21:05 Insulin Glargine 100 Units/Ml SUB-Q 30 units QHS ARMANDO Administration Insulin Human Lispro 0 unit 07/12/21 16:30 07/14/21 12:13 Insulin Lispro 100 Unit/Ml SUB-Q 4 unit ACHS ARMANDO Administration Protocol Lisinopril 10 mg 07/11/21 10:00 07/14/21 09:11 Lisinopril 10 Mg Tab PO Not Given QDAY ARMANDO Lorazepam 2 mg 07/10/21 23:28 07/13/21 19:46 Lorazepam 2 Mg/Ml Vial IV 2 mg Q1HR PRN Administration CIWA-Ar 8-15 Lorazepam 4 mg 07/10/21 23:28 07/14/21 00:24 Lorazepam 2 Mg/Ml Vial IV 4 mg Q1HR PRN Administration CIWA-Ar 16-25 Lorazepam 4 mg 07/10/21 23:28 Lorazepam 2 Mg/Ml Vial IV Q15MIN PRN CIWA-Ar >25 Morphine Sulfate 2 mg 07/11/21 02:18 07/14/21 09:10 Morphine 2 Mg/1 Ml Inj IV 2 mg Q4H PRN Administration Pain, Moderate (4-6) Morphine Sulfate 4 mg 07/11/21 02:18 07/14/21 02:33 Morphine 4 Mg/1 Ml Inj IV 4 mg Q4H PRN Administration Pain , Severe (7-10) Multivitamins 1 each 07/12/21 10:00 07/14/21 09:12 Multivitamins ,Therapeutic Tab PO 1 each QDAY [facility] Administration Nifedipine 30 mg 07/11/21 13:00 07/14/21 09:11 Nifedipine Xl 30 Mg Tab PO 30 mg QDAY [facility] Administration Ondansetron HCl 4 mg 07/11/21 02:18 07/12/21 05:13 Ondansetron 4 Mg/2 Ml Inj IV 4 mg Q8H PRN Administration Nausea And Vomiting Sodium Chloride 10 ml 07/11/21 10:00 07/14/21 09:11 Sodium Chloride 0.9% 10 Ml Flush Syringe IV 10 ml BID ARMANDO Administration Sodium Chloride 10 ml 07/11/21 02:18 07/14/21 02:34 Sodium Chloride 0.9% 10 Ml Flush Syringe IV 10 ml PRN PRN Administration LINE FLUSH Sucralfate 1 gm 07/11/21 07:30 07/14/21 12:13 Sucralfate 1 Gm Tab PO 1 gm ACHS ARMANDO Administration Thiamine HCl 100 mg 07/12/21 10:00 07/14/21 09:11 Thiamine 100 Mg Tab PO 100 mg QDAY ARMANDO Administration Nutrition/Malnutrition Assess - Dietary Evaluation Nutrition/Malnutrition Findings: Nutrition Notes Start: 07/11/21 09:47 Freq: Status: Active Protocol: Document 07/13/21 12:06 GRIFFIN (Rec: 07/13/21 12:26 GRIFFIN [id number]) Nutrition Notes Initial or Follow up Assessment Current Diagnosis Diabetes,Hypertension Other Pertinent Diagnosis Abdominal Pain/N/V, Pancreatitis, EtOH Dependance. Current Diet Cardiac/Consistent Carbohydrates Diet (since B ). Labs/Tests 07/13: Na 136, K 3.0, BUN 7, Crea 0.6, Glu 138. Pertinent Medications 07/13: [place] acid, Lantus 30U, Humalog 6U, Multivitamins, KCl 40 mEq, Thiamine, others nutritionally unremarkable. Height 5 ft 9 in Weight 69.7 kg [place] Body Weight (kg) 72.72 BMI 22.6 Weight change and time frame 0.607 Kg body weight loss in 2 days reported. Weight Status Appropriate Subjective/Other Information RD consult for routine F/U on dietary advancement and nutrition education assessment . Diet advanced to PO, No reports available on Pt's PO intake of meals at the time, will assess at F/U. Pt is on Room Air, O2 saturation @ 97%, according to Physical Assessment History notes. Pt still confuse and somnolent , according to RN notes. Pt still in critical condition , not a candidate for Nutrition Education at the time, will assess feasibility on F/U. Percent of energy/protein needs met: Prescribed Cardiac/Consistent Carbohydrates Diet provides for energy/protein needs (1, 977 Kcal/86 g) during LOS. Burn Absent Trauma Absent GI Symptoms Nausea,Vomiting,Other Food Allergy No Skin Integrity/Comment Assessment WNL. Minimum of two criteria No #1 Nutrition Diagnosis No nutrition diagnosis at this time Comments: Will assess Pt's PO intake of meals at F/U. Is patient on ventilator? No Is Patient Ambulatory and/or Out of Bed Yes REE-([facility]-ambulatory/OOB) [ 1998.594 NUTR.MSJOOB] Calculation Used for Recommendations [facility] Additional Notes Protein: 0.8-1 g/Kg ABW; 56-70 g/day. Fluids: 1 ml/Kcal, or as per MD. Nutrition Intervention Change Diet Order: Continue Cardiac/Consistent Carbohydrates Diet. Follow-Up By: 07/20/21 Additional Comments Nutrition education will be provided on F/U, if feasible. Continue monitoring food tolerance, %PO intake of meals , and BM.
[2021-07-14] MEDS ORDERED: oxyCODONE /ACETAMINOPHEN 5-325MG TAB PO PRN (14:23)
[2021-07-14 14:42] LABS: BUN/Creatinine Ratio 13; Blood Urea Nitrogen 8 mg/dL (9-20); Calcium 9.7 mg/dL (8.4-10.2); Hemolysis Index 10
--- NOTE | 2021-07-14 17:09 | XRay Report ---
ABDOMEN 1 VIEW INDICATION / CLINICAL INFORMATION: abd pain. COMPARISON: None available. FINDINGS: TUBES / LINES: None. BOWEL GAS PATTERN: No significant abnormality. Moderate stool burden throughout the colon. FREE AIR / EXTRALUMINAL GAS: None seen. ADDITIONAL FINDINGS: Postsurgical changes of the right acetabulum with heterotopic ossification about the right hip joint. IMPRESSION: 1. No acute abnormality. 2. Moderate stool burden throughout the colon, could reflect constipation. Signer Name: Isidro Ross MD Signed: 07/14/2021 5:04 PM Workstation Name: [employer]
[2021-07-14] MEDS: oxyCODONE /ACETAMINOPHEN 5-325MG TAB PO PRN (17:22)
[2021-07-14] MEDS ORDERED: POLYETHYLENE GLYCOL 3350 17 GM POWDER PO PRN (19:09)
[2021-07-14] MEDS: INSULIN GLARGINE 100 UNITS/ML SUB-Q SCH (23:11)
[2021-07-15] MEDS: oxyCODONE /ACETAMINOPHEN 5-325MG TAB PO PRN ×2 (00:13→07:54)
[2021-07-15 05:05] LABS: Basophils % (Auto) 0.8 % (0.0-1.8); Eosinophils # (Auto) 0.1 K/mm3 (0.0-0.4); Eosinophils % (Auto) 2.1 % (0.0-4.3); Hematocrit 38.5 % (35.5-45.6); Hemoglobin 13.2 gm/dl (11.8-15.2); Lymphocytes # (Auto) 2.4 K/mm3 (1.2-5.4); Lymphocytes % (Auto) 46.3 % (13.4-35.0); Mean Corpuscular HGB Conc 34 % (32-34); Mean Corpuscular Volume 98 fl (84-94); Monocytes # (Auto) 0.7 K/mm3 (0.0-0.8); Monocytes % (Auto) 13.9 % (0.0-7.3); Platelet Count 248 K/mm3 (140-440); Red Blood Count 3.93 M/mm3 (3.65-5.03)
[2021-07-15 05:25] LABS: Blood Urea Nitrogen 7 mg/dL (9-20); Calcium 9.4 mg/dL (8.4-10.2); Hemolysis Index 6
[2021-07-15 05:27] LABS: BUN/Creatinine Ratio 12
--- NOTE | 2021-07-15 07:43 | Discharge Summary ---
Providers - Providers Date of Admission: 07/11/21 02:18 Date of discharge: 07/15/21 Attending physician: KELSEA HENSLEY 07/11/21 02:18 Consult to Dietitian/Nutrition [CONS] Routine Physician Instructions: Reason For Exam: Reason for Consult: Diet education Primary care physician: LEDA ESQUIVEL Hospitalization Reason for admission: abd pain Condition: Good Hospital course: 51-year-old male with past medical history of alcohol abuse, diabetes, hypertension, and chronic pancreatitis was brought to the emergency room because of diffuse abdominal pain, cramping, nausea and vomiting. In the emergency room patient is found to have glucose of 416, bicarb 19, sodium 130, plasma alcohol level 0.01. The patient was admitted with diagnosis below: Starvation ketoacidosisresolved Anion gap metabolic acidosisresolved Abdominal pain Chronic pancreatitis secondary to alcohol dependence Nausea and vomiting Insulin dependent type II diabetes mellitus with hyperglycemia Hypertension Alcohol dependence Hypokalemia The patient was treated with IV fluid hydration, supportive care along with antiemetics. Patient received analgesics as needed. The patient was restarted on home regimen of Lantus 30 units at bedtime. Patient was continued on SSRI. Patient also had a BP maintained with home regimen of lisinopril 10 mg daily. Repleted potassium. Counseled patient on the importance of ETOH cessation. Assess patient's current ETOH consumption. Assisted with trying to arrange resources for patient to adequately work towards ETOH cessation. Patient expresses understanding. The patient was also placed CIWA protocol. The patient also received daily thiamine, folic acid, and multivitamin. The patient is felt to have received maximal hospital benefit and will be discharged home. Dedicated discharge time 32 minutes Disposition: 01 HOME / SELF CARE / HOMELESS Final Discharge Diagnosis (Prints w/discharge instructions): Starvation ketoacidosisresolved. Anion gap metabolic acidosisresolved. Abdominal pain. Chronic pancreatitis secondary to alcohol dependence. Nausea and vomiting. Insulin dependent type II diabetes mellitus with hyperglycemia. Hypertension. Alcohol dependence. Hypokalemia Core Measure Documentation - Palliative Care Palliative Care/ Comfort Measures: Not Applicable - Core Measures Any of the following diagnoses?: none Exam - Constitutional Vitals: Temp Pulse Resp BP Pulse Ox 98.3 F 97 H 18 120/93 98 07/14/21 20:34 07/14/21 20:34 07/15/21 01:13 07/14/21 20:34 07/14/21 22:00 General appearance: Present: no acute distress, well-nourished - EENT Eyes: Present: PERRL ENT: hearing intact, clear oral mucosa - Neck Neck: Present: supple, normal ROM - Respiratory Respiratory effort: normal Respiratory: bilateral: CTA - Cardiovascular Heart Sounds: Present: S1 & S2. Absent: rub, click - Extremities Extremities: pulses symmetrical, No edema Peripheral Pulses: within normal limits - Abdominal General gastrointestinal: Present: soft, non-tender, non-distended, normal bowel sounds Male genitourinary: Present: normal - Integumentary Integumentary: Present: clear, warm, dry - Musculoskeletal Musculoskeletal: gait normal, strength equal bilaterally - Psychiatric Psychiatric: appropriate mood/affect, intact judgment & insight - Neurologic Neurologic: CNII-XII intact, moves all extremities Plan Activity: advance as tolerated Weight Bearing Status: Weight Bear as Tolerated Diet: regular Follow up with: LEDA ESQUIVEL MD [Primary Care Provider] - 7 Days Prescriptions: diphenhydrAMINE [Benadryl CAP] 25 mg PO Q6H PRN #10 capsule PRN Reason: Itching Sucralfate [Carafate] 1 gm PO ACHS #30 tablet Folic Acid [Folvite] 1 mg PO QDAY #30 tablet metFORMIN [Glucophage] 500 mg PO BID #60 tablet Insulin Glargine [Lantus VIAL] 30 units SUB-Q QHS 30 Days units chlordiazePOXIDE [Librium] 25 mg PO DAILY #20 capsule polyethylene glycoL 3350 [Miralax 3350] 17 gm PO BID PRN #10 powd.pack PRN Reason: Constipation Multivitamin Tab [Multiple Vitamin TAB (Theragran)] 1 each PO QDAY #30 tablet oxyCODONE /ACETAMINOPHEN [Percocet 5/325 mg] 2 tab PO Q6H PRN #10 tablet PRN Reason: Pain, Moderate (4-6) NIFEdipine XL [Procardia Xl] 30 mg PO QDAY #30 tablet Thiamine [Vitamin B-1] 100 mg PO QDAY #30 tablet lisinopriL [Zestril TAB] 10 mg PO QDAY #30 tablet
[2021-07-15] MEDS: diphenhydrAMINE 25 MG CAP PO PRN (07:54)
[2021-07-15] MEDS: FOLIC ACID 1 MG TAB PO SCH (09:09)
[2021-07-15] MEDS: SUCRALFATE 1 GM TAB PO SCH (09:09)
[2021-07-15] MEDS: FAMOTIDINE 20 MG TAB PO SCH (09:09)
[2021-07-15] MEDS: LISINOPRIL 10 MG TAB PO SCH (09:09)
[2021-07-15] MEDS: THIAMINE 100 MG TAB PO SCH (09:09)
[2021-07-15] MEDS: HEPARIN 5,000 UNIT/1 ML VIAL SUB-Q SCH (09:09)
[2021-07-15] MEDS: NIFEdipine XL 30 MG TAB PO SCH (09:09)
[2021-07-15] MEDS: MULTIVITAMINS ,THERAPEUTIC TAB PO SCH (09:09)
[2021-07-15 09:10] VITALS: BP 119/92
[2021-07-15] MEDS: INSULIN LISPRO 100 UNIT/ML SUB-Q SCH (09:10)
== END 2021-07-15 11:06 | disposition home or self-care (01) | DRG 638 ==
LOC: ED 11:18 → 3A 07-11 02:18
PROVIDERS: ADMIT Hospitalist; ATTEND Hospitalist
DX: E11.65 Type 2 diabetes mellitus with hyperglycemia (principal); E87.2 Acidosis; K86.1 Other chronic pancreatitis; E87.1 Hypo-osmolality and hyponatremia; F10.20 Alcohol dependence, uncomplicated; E87.6 Hypokalemia; I10 Essential (primary) hypertension; Z90.49 Acquired absence of other specified parts of digestive tract; Z82.49 Family history of ischemic heart disease and other diseases of the circulatory system
CPT/HCPCS: 36415; 74018; 74177; 80048; 80053; 80320; 81001; 82805; 82962; 83690; 85025; 85027; 93005; 94640; G0378; J3490; Q9967; C9113; G0480; J1200; J1644; J1815; J2060; J2270; J2405; J3360; J3411; J7030